=== PATIENT | female | born 1965 ===

== ENCOUNTER 2016-09-25 16:46 | Emergency (ER) | payer BC ==
[2016-09-25 16:56] VITALS: RESP 16
[2016-09-25] MEDS ORDERED: Sodium Chloride 0.9% 1,000 ML IV STA (17:25)
--- NOTE | 2016-09-25 17:37 | ED PDOC ---
HPI: Headache Chief Complaint (Provider): headache History Per: Patient History/Exam Limitations: no limitations Onset/Duration Of Symptoms: Hrs (36) Current Symptoms Are (Timing): Still Present Severity: Severe Pain Scale Rating Of: 8 Quality: "Pain" Preceeding Symptoms: None Associated Symptoms: denies: Photophobia, Blurred Vision, Nausea, Vomiting, Extremity Weakness Additional Complaint(s): 50 yo F w PMHx of DM2 presents to ER w cough, congestion for previous 2 weeks and new onset headache. Pain began yesterday morning, is 8/10, localized to base of her skull, does not radiate, and does not worsen w lights or sound. She took excedrin this morning and advil 400mg at noon, both with little change in pain. Complains of 2 week h/o cough, congestion that she believes to have been seasonal allergies. Rhinorrhea resolved about 1 week ago but she still c/o 1 episode of dry cough at night. She denies fevers/chills, nausea, vomiting, diarrhea, constipation, diaphoresis, chest pain, SOB, dyspnea, cough. She is compliant with her DM medications and her home sugars are 150-190. No known sick contacts, except for her 28 year old son who also has seasonal allergies. Otherwise, she denies abdominal pain, hematuria, dysuria, vaginal discharge, hematochezia, melena, or other myalgias. <Devin Ford - Last Filed: 09/25/16 18:39> Additional Complaint(s): No neck pain. No vision changes. No fever. Has cough still with nasal congestion. No numbness, tingles, weakness. <Lewis Estevez M - Last Filed: 09/25/16 20:26> Time Seen by Provider: 09/25/16 17:16 Chief Complaint (Nursing): Headache Supervising Attending Note - Supervising Attending Note The Documented history was done by the: Physician Master Police Detective The documented physical exam was done by the: Physician Master Police Detective The documented procedures were done by the: Physician Master Police Detective - Attestation: I have personally seen and examined this patient.: Yes I have fully participated in the care of the patient.: Yes I have reviewed all pertinent clinical information: Yes <Lewis Estevez - Last Filed: 09/25/16 20:26> Past Medical History Reviewed: Historical Data, Nursing Documentation, Vital Signs Vital Signs: Last Vital Signs Temp 98.2 F 09/25/16 16:52 Pulse 89 09/25/16 16:52 Resp 16 09/25/16 16:52 BP 119/76 09/25/16 16:52 Pulse Ox 100 09/25/16 16:52 - Medical History PMH: Diabetes, Hypercholesterolemia Denies: Chronic Kidney Disease - Surgical History Surgical History: Appendectomy, Tonsillectomy, - Family History Family History: States: Unknown Family Hx <Devin Ford T - Last Filed: 09/25/16 18:39> Vital Signs: Last Vital Signs Temp 98.2 F 09/25/16 16:52 Pulse 89 09/25/16 16:52 Resp 16 09/25/16 16:52 BP 119/76 09/25/16 16:52 Pulse Ox 100 09/25/16 18:39 <Lewis Estevez - Last Filed: 09/25/16 20:26> - Home Medications Home Medications: Ambulatory Orders Medication Instructions Recorded Atorvastatin [Lipitor] 10 mg PO DAILY 07/10/14 Dapagliflozin Propanediol [Farxiga] 10 mg PO DAILY 07/10/14 Dulaglutide [Trulicity] 1.5 mg SC Q7D 07/10/14 MetFORMIN [glucoPHAGE] 1,000 mg PO DAILY 07/10/14 Glipizide [Glucotrol] 5 mg PO DAILY 01/29/15 Ibuprofen [Motrin] 600 mg PO Q6H PRN #15 tab 02/07/15 Tramadol Hydrochloride [Tramadol 50 mg PO Q6H PRN #12 tab 02/07/15 HCl] - Allergies Allergies/Adverse Reactions: Allergies Allergy/AdvReac Type Severity Reaction Status Date / Time No Known Allergies Allergy Verified 02/07/15 17:48 Review of Systems ROS Statement: Except As Marked, All Systems Reviewed And Found Negative (see HPI) <Devin Ford T - Last Filed: 09/25/16 18:39> Physical Exam - Reviewed Nursing Documentation Reviewed: Yes Vital Signs Reviewed: Yes - Physical Exam Appears: Positive for: Well, Non-toxic, No Acute Distress Head Exam: Positive for: ATRAUMATIC, NORMOCEPHALIC Skin: Positive for: Normal Color, Warm, Dry Eye Exam: Positive for: Normal appearance, EOMI, PERRL ENT: Positive for: Normal ENT Inspection. Negative for: Sinus Pain/Drainage, Nasal Congestion, Pharyngeal Erythema Neck: Positive for: Pain On Movement Of Neck (pain at skull base w full neck extension; otherwise no pain w ROM) Cardiovascular/Chest: Positive for: Regular Rate, Rhythm. Negative for: Edema Respiratory: Positive for: Normal Breath Sounds. Negative for: Wheezing, Respiratory Distress Gastrointestinal/Abdominal: Positive for: Normal Exam, Soft. 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 Negative for: Motor/Sensory Deficits, Aphasia, Facial Droop <Lewis Estevez M - Last Filed: 09/25/16 20:26> - ECG O2 Sat by Pulse Oximetry: 100 - Progress ED Course And Treament: 50 yo F w PMHx of DM2 presents to ER w cough, congestion for previous 2 weeks and new onset headache -CBC -CMP -Udip -Upreg -CT Head -NS 1L x1 -Toradol 30mg IVP x1 -Reglan 10mg IVP x1 Update 1820: -CT Head: No acute intracranial abnormalities. <Devin Ford - Last Filed: 09/25/16 18:39> - Laboratory Results Result Diagrams: 09/25/16 18:20 09/25/16 18:20 Interpretation Of Abn Labs: no acute - CT Scan/US ct Other Rad Studies (CT/US): Read By Radiologist Other Rad Interpretation: no acute - Progress ED Course And Treament: 2000: Stable. AAOx3. Pain free. Tolerated PO. Ambulated with no issues. FU with pcp. <Lewis Estevez M - Last Filed: 09/25/16 20:26> Disposition - Disposition Disposition Time: 18:30 <Devin Ford - Last Filed: 09/25/16 18:39> - Patient ED Disposition Is Patient to be Admitted: Yes Counseled Patient/Family Regarding: Studies Performed, Diagnosis, Need For Followup - Disposition Disposition: Routine/Home <Lewis Estevez M - Last Filed: 09/25/16 20:26> - Clinical Impression Clinical Impression: Acute headache, URI (upper respiratory infection) - Disposition Referrals: [facility] [Outside] Condition: STABLE Instructions: Acute Headache (ED), Upper Respiratory Infection (ED)
--- NOTE | 2016-09-25 18:18 | CT ---
PROCEDURE: CT HEAD WITHOUT CONTRAST. HISTORY: headache COMPARISON: 04/24/2012 TECHNIQUE: Axial computed tomography images were obtained through the head/brain without intravenous contrast. Radiation dose: Total exam DLP = 859.25 mGy-cm. This CT exam was performed using one or more of the following dose reduction techniques: Automated exposure control, adjustment of the mA and/or kV according to patient size, and/or use of iterative reconstruction technique. FINDINGS: HEMORRHAGE: No intracranial hemorrhage. BRAIN: No mass effect or edema. No atrophy or chronic microvascular ischemic changes. VENTRICLES: Unremarkable. No hydrocephalus. CALVARIUM: Unremarkable. PARANASAL SINUSES: Unremarkable as visualized. No significant inflammatory changes. MASTOID AIR CELLS: Unremarkable as visualized. No inflammatory changes. OTHER FINDINGS: None. IMPRESSION: No acute intracranial abnormalities. No significant findings to account for the clinical presentation. Phase No significant interval change compared to the prior examination(s).
[2016-09-25 18:42] LABS: ALB/GLOB RATIO 1.4 (1.0-2.1); ALBUMIN 4.3 g/dL (3.5-5.0); ALT/SGPT 51 U/L (9-52); AST/SGOT 28 U/L (14-36); BLOOD UREA NITROGEN 15 mg/dl (7-17); CALCIUM 9.8 mg/dL (8.4-10.2); GFR AFRICAN-AMERICAN > 60; GFR NON-AFRICAN AMERICAN > 60
[2016-09-25 18:48] LABS: BASO % 0.7 % (0.0-2.0); EOS # 0.1 K/uL (0.0-0.7); EOS % 1.8 % (0.0-4.0); HEMOGLOBIN 12.7 g/dL (12.0-16.0); LYMPH # 3.1 K/uL (1.0-4.3); LYMPH % 42.7 % (20.0-40.0); MEAN CELL VOLUME 90.8 fl (81.0-99.0); MEAN CORPUSCULAR HEMOGLOBIN 31.4 pg (27.0-31.0); MEAN CORPUSCULAR HGB CONC 34.5 g/dL (33.0-37.0); MEAN PLATELET VOLUME 7.1 fl (7.2-11.7); MONO # 0.6 K/uL (0.0-0.8); NEUT # 3.4 K/uL (1.8-7.0); NEUT % 46.8 % (50.0-75.0); NRBC % 0.1 % (0.0-0.0); RBC 4.06 Mil/uL (3.80-5.20); RED CELL DISTRIBUTION WIDTH 12.4 % (11.5-14.5); WHITE BLOOD COUNT 7.2 K/uL (4.8-10.8)
[2016-09-25 20:21] VITALS: BP 117/63; PULSE 51; TEMP 98; O2SAT 98
== END 2016-09-25 20:31 | disposition home or self-care (01) ==
LOC: H.ER 16:46
DX: R51 Headache (principal); J06.9 Acute upper respiratory infection, unspecified; E11.9 Type 2 diabetes mellitus without complications; E78.00 Pure hypercholesterolemia, unspecified; Z79.84 Long term (current) use of oral hypoglycemic drugs
CPT/HCPCS: 70450; 80053; 81025; 85025; 96361; 96374; 96375; 99285; J1885; J2765; J7040

== ENCOUNTER 2017-01-16 09:23 | Day surgery (SDC) | payer BC ==
[2017-01-14 14:43] VITALS: BMI 30.1
[2017-01-16] MEDS ORDERED: ceFAZolin 2 GM in Sodium Chloride 0.9% 100 ML IVPB ONE (11:11)
[2017-01-16] MEDS ORDERED: Lidocaine 2% w Epi 1:100,000 Inj IJ ONE (11:12)
[2017-01-16] MEDS ORDERED: Lidocaine 1% Inj (20ml) ONE (11:12)
[2017-01-16] MEDS ORDERED: Midazolam 2 MG/2 ML VIAL ONE (11:15)
[2017-01-16] MEDS ORDERED: Ropivacaine 0.5% 30ML IV ONE (11:16)
[2017-01-16] MEDS ORDERED: Propofol 10 mg/ml Inj (20 ML) ONE (11:17)
--- NOTE | 2017-01-16 11:17 | CP.SDSHP ---
Same Day Surgery H & P - History Proposed Procedure: Right ankle arthroscopy with extensive debridement, lateral ankle stabilization with implant, platelet rich plasma injection Pre-Op Diagnosis: right ankle chronic painful synovitis and lateral ankle stabilization - Previous Medical/Surgical History Pain: 8.Very Severe - Allergies Allergies: Allergies No Known Allergies Allergy (Verified 01/14/17 14:43) - Physical Exam Vital Signs: Vital Signs 01/16/17 01/16/17 09:46 09:50 Temperature 98.8 F Pulse Rate 85 85 Respiratory 18 Rate Blood Pressure 122/78 O2 Sat by Pulse 85 L Oximetry Mental Status: Alert & Oriented x3 - Impression Impression: Pt was seen and examined in SDS. Pt NPO status was confirmed. All Pre-op testing and clearance was in the chart. Pt has exhausted all conservative treatment at this time and is opting for surgical intervention. Pt was explained procedure and post-operative course. All pt's questions were answered to satisfaction. No guarantees were made. Pt understands all risks, benefits and complications of procedure. Pt will follow-up with Dr. Becker - Date & Time Date: 01/16/17 Time: 10:40 Short Stay Discharge - Short Stay Discharge Admitting Diagnosis/Reason for Visit: M65.871/S93.491S/S93.411S Referrals: Quinton Jeronimo MD [Primary Care Provider] - Instructions: RICE Therapy (GEN) Additional Instructions (Diet, Activity): - Patient evaluated bedside in recovery s/p surgical procedure. - After surgical procedure patient in NAD - (+) Void, (+) Appetite - Capillary refill time <3s and NVSI intact. - Patient denies complaints at this time - Post operative instructions and plan of care explained to patient at length. - Pt. acknowledges understanding. - Patient stable for DC per podiatric surgery Progress Note/Discharge Note with Instructions: --Patient in good/stable condition for discharge home. Pt to resume medications per medical reconciliation. Resume regular diet. Please keep dressing clean, dry, & intact to surgical site, use plastic bag over bandage for showering, wear CAM at all times when ambulating, call clinic if you see signs of infection (redness, swelling, malodor), please make an appointment to see Dr. Vee office/clinic within 1 week for post-op check.
--- NOTE | 2017-01-16 11:17 | CP.PCM.PN ---
Subjective - Date & Time of Evaluation Date of Evaluation: 01/16/17 Time of Evaluation: 10:40 - Subjective Subjective: 51 y.o female was evaluated in [facility] for right ankle pain and lateral ankle instability. She reports that the pain has gotten worse over the last 6 months. She states when she walks, she feels unstable. Today she rates her pain 7/10 and describes the pain as a stabbing pain and localized to the right ankle. Patient states she did not drink or eat anything since last night. She denies n/ v/sob/cp/chills or f. PMH: DM PSH: Appendectomy, Tonsillectomy, SH: smoker, denies drinking or illicit drug use MEDS: see medication list ALL: NKDA FH: noncontributory Objective - Vital Signs/Intake and Output Vital Signs (last 24 hours): Temp Pulse Resp BP Pulse Ox 98.8 F 85 18 122/78 85 L 01/16/17 09:50 01/16/17 09:50 01/16/17 09:50 01/16/17 09:50 01/16/17 09:50 - Medications Medications: Current Medications Cefazolin Sodium 2 gm/ Sodium (Chloride) 100 mls @ 100 mls/hr IVPB ONCE ONE PRN Reason: Protocol Stop: 01/16/17 12:10 - Constitutional Appears: Well, Non-toxic, No Acute Distress - Extremities Exam Additional comments: Vasc: DP and PT 2/4 bilaterally, CFT <3 seconds x10 digits, temperature gradient WNL, edema noted to the right ankle Ortho: severe pain with palpation to the lateral ankle, severe pain with palpation to the right CFT and ATFL. MM is 5/5 in dorsiflexion, plantarflexion , inversion and eversion Neuro: protective and gross sensation intact Derm: no open lesions, skin is well hydrated, nails 1-5 b/l WNL for thickness and length - Neurological Exam Neurological Exam: Alert, Awake, Oriented x3 - Psychiatric Exam Psychiatric exam: Normal Affect, Normal Mood Assessment and Plan - Assessment and Plan (Free Text) Assessment: 51 y.o female was evaluated in [facility] for right ankle pain and lateral ankle instability. Plan: Pt was seen and examined in [facility] Pt NPO status was confirmed All Pre-op testing and clearance was in the chart Pt has exhausted all conservative treatment at this time and is opting for surgical intervention Pt was explained procedure and post-operative course All pt's questions were answered to satisfaction No guarantees were made Pt understands all risks, benefits and complications of procedure Pt will follow-up with Dr. Becker
[2017-01-16] MEDS ORDERED: Lactated Ringer's 1,000 ML IV ONE ×2 (11:25→12:30)
[2017-01-16] MEDS ORDERED: Sevoflurane - Inhalation Anesthetic Liq (250 ml) ONE (12:30)
[2017-01-16] MEDS ORDERED: Bupivacaine 0.5% Inj(30mL) ONE (13:26)
[2017-01-16] MEDS ORDERED: Bupivacaine 0.5% Inj(30mL) IJ ONE (13:29)
[2017-01-16] MEDS ORDERED: Lactated Ringer's 1,000 ML IV SCH (13:45)
--- NOTE | 2017-01-16 13:54 | PCM.SURG1 ---
Surgeon's Initial Post Op Note - Surgeon's Notes Surgeon: Dr. Becker Embossing Machine Operator Helper: Klaus, PGY-3 Type of Anesthesia: General LMA, Block Regional (popliteal block) Anesthesia Administered By: Dr. Romero Pre-Operative Diagnosis: Right ankle- chronic and painful synovitis; lateral ankle instability Operative Findings: See dictation. Hemostasis: PTT at 350mmHg. Materials: Arthrex InternalBrace, Arthrex mini 2.4 suture lyndsay; 4-0 vicryl, 4-0 monocryl; 4- 0 nylon; steri-strips, DSD, ALBA bandage. Injectables: 20 cc 0.5% Marcaine plain post-op. Condition: Stable. Complications: None Post-Operative Diagnosis: Same as above Operation Performed: Right ankle- arthroscopy with extensive debridement of synovial tissue; lateral ankle stabilization; PRP injection Specimen/Specimens Removed: None Estimated Blood Loss: EBL {In ML}: 10 Blood Products Given: N/A Drains Used: No Drains Post-Op Condition: Good Date of Surgery/Procedure: 01/16/17 Time of Surgery/Procedure: 11:00
[2017-01-16] MEDS ORDERED: Oxycodone/Acetaminophen 5/325 mg Tab PO PRN ×2 (14:01)
[2017-01-16 14:48] VITALS: RESP 18; O2SAT 97
--- NOTE | 2017-01-16 15:00 | PCM.ANESB2 ---
Popliteal Nerve Block - Popliteal Nerve Block Date of Procedure: 01/16/17 Anesthesiologist: Ludwig Romero MD Procedure Performed: Popliteal Nerve Block Right - Procedure Popliteal Nerve Block: This procedure was explained to the patient that it is for post-operative pain management. Consent was obtained after a thorough discussion with the patient regarding the benefits and possible complications of local anesthetic block of the sciatic nerve at the popliteal level. The patient was brought to the operating room and standard monitors are applied. Time-out was held with the circulating nurse to confirm the correct surgery and the appropriate block. After induction of general anesthesia, patient's operative leg was gently raised and supported and the groove in between the biceps femoris and vastus lateralis muscles was carefully palpated. The skin approximately 8cm above the popliteal crease was then marked. The ultrasound transducer was then applied to the posterior thigh approximately 8cm above the popliteal crease in the transverse plane and the sciatic nerve before its division was visualized lateral to the popliteal artery and in between the bicep femoris and semimembranosus/semitendinosus muscles. After identification, the lateral portion of the thigh was prepped with chloroprep solution three times and Lidocaine 1% was injected subcutaneously for topical anesthesia. At this point, a # 21 gauge Stimuplex insulated 4 inch needle was inserted into pre-marked area and advanced in a perpendicular direction. The needle was inserted above the ultrasound transducer in-plane towards the sciatic nerve in a [id number] direction. Needle advancement was performed carefully under direct ultrasound visualization. Nerve stimulator was used and dorsiflexion of the _Right____ foot was elicited at a current of _0.2____ MA. After repeated negative aspiration, _20____cc of _0.5____ % _Ropivacaine was injected . Under ultrasound guidance the local anesthetics were observed surrounding sciatic nerve . The needle was removed intact and sterile dressing was applied. The patient tolerated the popliteal nerve block well with stable vital signs and was subsequently prepared for the surgery.
[2017-01-16] MEDS ORDERED: Oxycodone/Acetaminophen 5/325 mg Tab PO ONE (15:15)
[2017-01-16 16:09] VITALS: BP 136/72; PULSE 70; TEMP 97.4
--- NOTE | 2017-01-21 06:32 | OP ---
PROCEDURE DATE: 01/16/2017 SURGEON: Abilio Becker DPM BACTERIOLOGY RESEARCH ASSISTANT: Fidencio Enrique DPM, PGY-3 TOLL OPERATOR: Dr. Ludwig Romero MD ANESTHESIA: General LMA with popliteal block. PREOPERATIVE DIAGNOSES: 1. Right ankle chronic and painful synovitis. 2. Right ankle lateral ankle instability. POSTOPERATIVE DIAGNOSES: 1. Right ankle chronic and painful synovitis. 2. Right ankle lateral ankle instability. PROCEDURE: 1. Right ankle arthroscopy with extensive debridement of synovial tissue. 2. Right ankle lateral ankle stabilization using Arthrex Mini SutureTak and InternalBrace. 3. Right ankle platelet-rich plasma injection. INDICATIONS: The patient is a 51-year-old female with the above diagnosis. The patient has undergone second conservative treatment at this time and now requests surgical intervention. The patient signed the consent after careful explanation of risks, benefits, complications, and alternatives for surgical procedure. No guarantees were given nor implied. The patient was given 2 g of IV Ancef prior to the procedure. The patient's n.p.o. status was confirmed prior to taking the patient to the OR. DESCRIPTION OF PROCEDURE: The patient was brought to the operating room and placed on the operating room table in a supine position. Time-out was performed for identification of the correct patient and the correct procedure. Once general anesthesia was achieved, a well-padded pneumatic thigh tourniquet was applied to the patient's right thigh. A bump was placed under the ipsilateral hip in order to internally rotate the right leg. The right lower extremity was then prepped and draped in the usual sterile manner. Esmarch was utilized to exsanguinate the patient's right lower extremity. Pneumatic thigh tourniquet was then inflated to 350 mmHg and the procedure began. PROCEDURE #1: Right ankle arthroscopy with extensive debridement of synovial tissue. Attention was then directed to the dorsal aspect of the patient's right ankle. Using a surgical marking pen, anatomic landmarks were marked such as the tibialis anterior tendon, and the medial and lateral gutters were identified. Next, using an #11 blade, a medial portal was created. Using a hemostat down to the level of the ankle joint, the ankle joint was then entered. Next, the 2.7 scope was inserted into the medial portal. There was an abundant hypertrophic synovium as well as fibrous bands within the lateral gutter of the ankle joint. Next, a lateral portal was created using a #11 blade, and a curved hemostat was used to bluntly dissect down to the level of the joint. A trocar was placed into the lateral port and it was triangulated along with a 2.7 scope. Next, a 3.5 arthroscopic shaver was inserted into the lateral ankle portal, and debridement of the hypertrophic synovium was performed. The ankle joint was inspected for any osteochondral defect, and none were noted. The arthroscope and shaver were removed from the respective portals at this time and were inserted through the arthroscopic portal. Debridement of the hypertrophic synovium was now performed within the medial gutter. Next, the ankle joint was then copiously irrigated, and the 2.7 scope and the 3.5 arthroscopic shaver were removed from each portal. The portal sites were then flushed with copious amounts of sterile normal saline. The skin at both the medial and lateral portals was then re-approximated and coapted with 4-0 nylon. PROCEDURE #2: Right ankle and lateral ankle stabilization using Arthrex Mini SutureTak and InternalBrace. Attention was then directed to the internal lateral aspect of the right ankle. Using a #15 blade, an approximately 7 cm curvilinear incision was created along the lateral gutter of the ankle joint. The incision was carried through the subcutaneous tissue with care being taken to identify and retract all vital neurovascular structures. All bleeders were cauterized and ligated as necessary. With the use of a fresh #15 blade, the capsular structures were incised in a similar fashion through the original incision thorough the skin. Dissection was carried down to the level of bone. At this point, it was noted that the anterior talofibular ligament was torn. The drill from the InternalBrace system was utilized to create a welder railcar mechanic drill hole for the Arthrex InternalBrace within the neck of the talus and the anterior aspect of the distal fibula. Once anchored into the talus, the InternalBrace system was felt deep through the capsular tissue and extensor retinaculum, and it was then retracted from the surgical site. Next, a 1.8-mm drill was used to create a drill hole on the distal aspect of the fibula, approximately 1.5 cm proximal to the distal fib for insertion of the Arthrex Mini SutureTak once the implant was anchored into the distal fibula. The sutures were fed through the distal aspect of the ankle capsule and the extensor retinaculum in a routine fashion. Once this was completed, the respective suture anchors were then passed through the proximal aspect of the capsule and the anterior talofibular ligament. These respective sutures were then tied to one another while maintaining the foot in a dorsiflexed and everted position. This effectively allowed primary repair of the anterior talofibular ligament. Next, the distal end of the InternalBrace system was fed through a Single Lock System. The ankle joint was placed into a neutral and partly plantarflexed position. Approximately 1 cm of laxity was then given to the InternalBrace, and the proximal portion of the InternalBrace was then anchored into the tibial level from the previously drilled welder railcar mechanic hole. This effectively allowed stabilization of the lateral aspect of the ankle joint. The ankle joint was then taken through its range of motion, both the plantar flexion and dorsiflexion, also eversion and inversion. Significant reduction in the lateral ankle instability was noted. The surgical site was now irrigated with copious amounts of sterile normal saline. The deep tissues were then re-approximated and coapted using 4-0 Vicryl. PROCEDURE #3: Right ankle platelet-rich plasma injection. Approximately 60 mL of the patient's own blood was harvested from the Hep-Lock. This 60 mL of autologous blood was placed in the centrifuge system. An anticoagulant was then added, and the blood was centrifuged down to give approximately 5 mL of platelet-rich plasma. This platelet-rich plasma solution was then placed in a syringe. The platelet-rich plasma was then injected within the lateral gutter of the ankle joint and within the site of the primary ATFL repair to facilitate healing. At this time, the subcutaneous tissues were then re-approximated and coapted with 4-0 Vicryl. The skin was then re-approximated and coapted using 5-0 Monocryl in a running subcuticular fashion. Steri-Strips were then applied over the incision site. Next, this ankle joint was blocked with 10 mL of 0.5% Marcaine plain. The surgical site was now dressed with moist 4 x 4 gauze, dry 4 x 4 gauze, Kerlix, and an Jose bandage. The attending, Dr. Becker, was present throughout the entire case. POSTOPERATIVE CONDITION: The patient tolerated the anesthesia and procedures well with no complications. The patient was escorted to the recovery room with vital signs stable and neurovascular status intact to the right lower extremity. She was instructed to weightbear as tolerated with a Cam walker. The patient is to follow up with Dr. Becker at his office on an outpatient basis. Fidencio Enrique DPM
== END 2017-01-16 16:30 | disposition home or self-care (01) ==
LOC: H.OPSURG 09:23
PROVIDERS: ATTEND Podiatrist
DX: M65.871 Other synovitis and tenosynovitis, right ankle and foot (principal); E11.9 Type 2 diabetes mellitus without complications; E78.5 Hyperlipidemia, unspecified; M25.371 Other instability, right ankle
CPT/HCPCS: 0232T; 29898; 29899; 82948; 97116; 97161; C1769; G0460; G8978; G8979; G8980; J0690; J2001; J2250; J2704; J3010; J7030; J7120

== ENCOUNTER 2017-03-17 21:39 | Emergency (ER) | payer BC ==
[2017-03-17 21:39] VITALS: BMI 30.1
[2017-03-17 21:54] VITALS: BP 148/82; PULSE 76; RESP 16; TEMP 97.9; O2SAT 98
== END 2017-03-18 00:20 | disposition left against medical advice (07) ==
LOC: H.ER 21:39
DX: Z02.89 Encounter for other administrative examinations (principal)

== ENCOUNTER 2017-03-27 11:37 | Inpatient (IN) | payer BC ==
[2017-03-27 11:52] VITALS: BMI 33.3
--- NOTE | 2017-03-27 12:34 | ED PDOC ---
HPI: General Adult Time Seen by Provider: 03/27/17 12:28 Chief Complaint (Nursing): Breast Problem Chief Complaint (Provider): breast infection History Per: Patient (51 y/o female s/p biopsy of left breast mass 03/19/2017 was noted to have infection consistent of group D enterococci susceptible to amp /vanc. Also noted in cx was coagulase neg staph strain susceptible to cephelexin /pcn/clinda and coag neg staph strain 2 susceptible to bactrim/keflex. Patient has been ampicillin x 2 days without improvement of symptoms. Denies any fevers /chills. Sent by pmd Dr. Terry for admission and iv antibiotics.) Past Medical History Reviewed: Historical Data, Nursing Documentation, Vital Signs Vital Signs: Last Vital Signs Temp 97.7 F 03/29/17 08:10 Pulse 78 03/29/17 08:10 Resp 20 03/29/17 08:10 BP 118/77 03/29/17 08:10 Pulse Ox 96 03/29/17 08:10 - Medical History PMH: Diabetes, Hypercholesterolemia Denies: Chronic Kidney Disease - Surgical History Surgical History: Appendectomy, Tonsillectomy, - Family History Family History: States: Unknown Family Hx - Home Medications Home Medications: Ambulatory Orders Medication Instructions Recorded Acetaminophen/Oxycodone Hydr 1 tab PO DAILY 01/16/17 [Percocet 10/325 mg Tab] SITagliptin [Januvia] 100 mg PO DAILY 01/16/17 Dulaglutide [Trulicity] 0.75 mg SC SUN 03/27/17 Glimepiride [Amaryl] 4 mg PO BID 03/27/17 Metformin HCl [Metformin HCl ER] 1,000 mg PO BID 03/27/17 - Allergies Allergies/Adverse Reactions: Allergies Allergy/AdvReac Type Severity Reaction Status Date / Time No Known Allergies Allergy Verified 03/17/17 21:52 Review of Systems ROS Statement: Except As Marked, All Systems Reviewed And Found Negative Physical Exam - Reviewed Nursing Documentation Reviewed: Yes Vital Signs Reviewed: Yes - Physical Exam Appears: Positive for: Well, Non-toxic, No Acute Distress Head Exam: Positive for: ATRAUMATIC, NORMAL INSPECTION, NORMOCEPHALIC Skin: Positive for: Warm. Negative for: Normal Color (2.5 cm region of swelling and erythema noted left breast noted medial aspect.) Eye Exam: Positive for: EOMI, Normal appearance, PERRL ENT: Positive for: Normal ENT Inspection Neck: Positive for: Normal, Painless ROM Cardiovascular/Chest: Positive for: Regular Rate, Rhythm Respiratory: Positive for: CNT, Normal Breath Sounds Gastrointestinal/Abdominal: Positive for: Normal Exam, Bowel Sounds, Soft Back: Positive for: Normal Inspection Extremity: Positive for: Normal ROM Neurologic/Psych: Positive for: Alert, Oriented - Laboratory Results Result Diagrams: 03/27/17 13:11 03/27/17 13:11 - ECG O2 Sat by Pulse Oximetry: 100 - Progress ED Course And Treament: d/w Dr. Herrera. patient does not meet SRS criteria. Lactate elevated. wbc wnl / pulse/resp rate/BP wnl. NS 1 liter. repeat Lactate improved to 2.4. Vancomycin 1 gm iv x 1 dose d/w Dr. Crabtree for admission. Disposition - Clinical Impression Clinical Impression: Cellulitis of breast, Abscess of breast - Patient ED Disposition Is Patient to be Admitted: Yes - Disposition Disposition Time: 13:00 Condition: STABLE
[2017-03-27 13:02] LABS: VENOUS BLOOD GAS BASE EXCESS 0.5 mmol/L (0.0-2.0); VENOUS BLOOD GAS PCO2 44 mmHg (40-60); VENOUS BLOOD GAS PO2 35 mm/Hg (30-55); VENOUS BLOOD PH 7.38 (7.32-7.43)
[2017-03-27] MEDS ORDERED: Sodium Chloride 0.9% 2,000 ML IV STA (13:10)
[2017-03-27 13:21] LABS: BASO % 0.5 % (0.0-2.0); EOS # 0.1 K/uL (0.0-0.7); HEMOGLOBIN 13.5 g/dL (12.0-16.0); LYMPH # 2.4 K/uL (1.0-4.3); MEAN CELL VOLUME 91.2 fl (81.0-99.0); MEAN CORPUSCULAR HEMOGLOBIN 31.3 pg (27.0-31.0); MEAN CORPUSCULAR HGB CONC 34.4 g/dL (33.0-37.0); MEAN PLATELET VOLUME 7.3 fl (7.2-11.7); MONO # 0.4 K/uL (0.0-0.8); NEUT # 4.4 K/uL (1.8-7.0); NEUT % 59.5 % (50.0-75.0); NRBC % 0.1 % (0.0-0.0); RBC 4.31 Mil/uL (3.80-5.20); RED CELL DISTRIBUTION WIDTH 12.4 % (11.5-14.5); WHITE BLOOD COUNT 7.4 K/uL (4.8-10.8)
[2017-03-27 13:43] LABS: ALB/GLOB RATIO 1.3 (1.0-2.1); ALBUMIN 4.1 g/dL (3.5-5.0); ALT/SGPT 57 U/L (9-52); AST/SGOT 41 U/L (14-36); BLOOD UREA NITROGEN 14 mg/dl (7-17); CALCIUM 9.7 mg/dL (8.4-10.2); GFR AFRICAN-AMERICAN > 60; GFR NON-AFRICAN AMERICAN > 60
--- NOTE | 2017-03-27 14:43 | RAD ---
PROCEDURE: CHEST RADIOGRAPH, 1 VIEW HISTORY: routine COMPARISON: Comparison chest 12/27/2016. . FINDINGS: LUNGS: Poor inspiration with low lung volumes, crowded bronchovascular markings and mild bibasilar atelectasis. PLEURA: No pneumothorax or pleural fluid seen. CARDIOVASCULAR: Heart size upper limits of normal. OSSEOUS STRUCTURES: No significant abnormalities. VISUALIZED UPPER ABDOMEN: Normal. OTHER FINDINGS: None. IMPRESSION: Poor inspiration low lung volumes crowded bronchovascular markings and mild bibasilar atelectasis. TheNo active disease.
[2017-03-27 15:46] LABS: VENOUS BLOOD GAS BASE EXCESS -1.7 mmol/L (0.0-2.0); VENOUS BLOOD GAS PCO2 45 mmHg (40-60); VENOUS BLOOD GAS PO2 28 mm/Hg (30-55); VENOUS BLOOD PH 7.34 (7.32-7.43)
[2017-03-27] MEDS ORDERED: Oxycodone/Acetaminophen 5/325 mg Tab PO PRN (18:19)
[2017-03-27] MEDS: Sodium Chloride 0.9% 1,000 ML IV SCH (22:07)
[2017-03-27] MEDS: Insulin Regular 100 units/ml SC SCH (22:20)
[2017-03-28] MEDS: Sodium Chloride 0.9% 1,000 ML IV SCH (07:20)
[2017-03-28] MEDS: Insulin Regular 100 units/ml SC SCH ×4 (07:30→21:39)
[2017-03-28] MEDS: GlipiZIDE 10 mg SR Tab PO SCH ×2 (09:47→21:40)
--- NOTE | 2017-03-28 12:48 | CARD ---
APPROVED REPORT EKG Measurement Heart [id number] <Conclusion> Normal sinus rhythm Normal ECG
--- NOTE | 2017-03-28 23:17 | CP.PCM.HP ---
History of Present Illness - History of Present Illness History of Present Illness: CC: Left Breat Swelling and Pain, and Multiple Organism Identified, and FAiled outpatient Treatment History of Present Illness: A 51 y/o female with H/O DMII s/p biopsy of left breast mass 03/19/2017 was noted to have infection consistent of group D Enterococci susceptible to amp/ vanc. Also noted in cx was Coagulase neg staph strain susceptible to cephelexin/ pcn/clinda and coag neg staph strain 2 susceptible to Bactrim/Keflex. Patient has been taking ampicillin x 2 days without improvement of symptoms. Denies any fevers/chills. Sent by pmd Dr. Jeronimo for admission and iv antibiotics. Denies fever or chills. Biopsy was negative for Malignancy.) Present on Admission - Present on Admission Any Indicators Present on Admission: No History of DVT/PE: No History of Uncontrolled Diabetes: Yes Urinary Catheter: No Decubitus Ulcer Present: No Review of Systems - Review of Systems All systems: reviewed and no additional remarkable complaints except - Breasts Breasts: As Per HPI, Pain, Skin Changes, Swelling Past Patient History - Past Medical History & Family History Past Medical History?: Yes Past Family History: Reviewed and not pertinent - Past Social History Smoking Status: Never Smoked Alcohol: None Drugs: Denies - CARDIAC Hx Hypercholesterolemia: Yes - PULMONARY Hx Respiratory Disorders: No - NEUROLOGICAL Hx Neurological Disorder: No - HEENT Hx HEENT Problems: No - RENAL Hx Chronic Kidney Disease: No - ENDOCRINE/METABOLIC Hx Endocrine Disorders: Yes Hx Diabetes Mellitus Type 2: Yes - HEMATOLOGICAL/ONCOLOGICAL Hx Blood Disorders: No - INTEGUMENTARY Hx Dermatological Problems: No - MUSCULOSKELETAL/RHEUMATOLOGICAL Hx Musculoskeletal Disorders: No Hx Falls: No - GASTROINTESTINAL Hx Gastrointestinal Disorders: No - GENITOURINARY/GYNECOLOGICAL Hx Genitourinary Disorders: No - PSYCHIATRIC Hx Emotional Abuse: No Hx Physical Abuse: No Hx Substance Use: No - SURGICAL HISTORY Hx Appendectomy: Yes Hx Tonsillectomy: Yes - ANESTHESIA Hx Anesthesia: Yes Hx Anesthesia Reactions: No Hx Malignant Hyperthermia: No Meds Home Medications: Home Medication List Medication Instructions Recorded Confirmed Type Benzocaine/Menthol [Cepacol Sore 1 cortney PO Q4 PRN cortney 04/01/17 Rx Throat] Fluticasone Propionate [Flonase] 1 spr KIMBERLEE BID #1 bottle 04/01/17 Rx Linezolid [Zyvox] 600 mg PO Q12 #14 tab 04/01/17 Rx guaiFENesin/Dextromethorphan 1 tab PO BID tab 04/01/17 Rx [Mucinex-DM 600-30 mg] Allergies/Adverse Reactions: Allergies Allergy/AdvReac Type Severity Reaction Status Date / Time No Known Allergies Allergy Verified 03/17/17 21:52 Physical Exam - Constitutional Appears: Well, No Acute Distress - Head Exam Head Exam: ATRAUMATIC, NORMAL INSPECTION, NORMOCEPHALIC - Eye Exam Eye Exam: EOMI, Normal appearance, PERRL Pupil Exam: NORMAL ACCOMODATION, PERRL - ENT Exam ENT Exam: Mucous Membranes Moist, Normal Exam - Neck Exam Neck exam: Positive for: Full Rom, Normal Inspection - Respiratory Exam Respiratory Exam: Clear to Auscultation Bilateral, NORMAL BREATHING PATTERN Additional comments: Left Breast erythema and mass Perinipple area with extending deep with Tenderness and Erythema. - Cardiovascular Exam Cardiovascular Exam: REGULAR RHYTHM, +S1, +S2 - GI/Abdominal Exam GI & Abdominal Exam: Normal Bowel Sounds, Soft. absent: Tenderness - Rectal Exam Rectal Exam: NORMAL INSPECTION - Extremities Exam Extremities exam: Positive for: normal capillary refill, normal inspection - Back Exam Back exam: NORMAL INSPECTION. absent: CVA tenderness (L), CVA tenderness (R) - Neurological Exam Neurological exam: Alert, CN II-XII Intact, Normal Gait, Oriented x3, Reflexes Normal - Psychiatric Exam Psychiatric exam: Normal Affect, Normal Mood - Skin Skin Exam: Dry, Intact, Normal Color, Warm Results - Vital Signs Recent Vital Signs: Last Vital Signs Temp 97.9 F 03/28/17 16:15 Pulse 89 03/28/17 16:15 Resp 18 03/28/17 16:15 BP 129/83 03/28/17 16:15 Pulse Ox 97 03/28/17 16:15 - Labs Result Diagrams: 04/01/17 05:45 03/31/17 05:35 Labs: Laboratory Results - last 24 hr 03/28/17 03/28/17 03/28/17 05:45 10:59 15:59 POC Glucose (mg/dL) 206 H 209 H 186 H 03/28/17 21:34 POC Glucose (mg/dL) 241 H - Imaging and Cardiology Chest x-ray Status: Report reviewed by me Assessment & Plan (1) Cellulitis of breast Assessment and Plan: R/O Abscess Vancomycin 1g IV Q12hrs IVF Monitor Improvement ID Consult [place] Consult CBC with diff Vanco /Peak Status: Acute Priority: High (2) Diabetes mellitus Status: Chronic Priority: Low
[2017-03-29] MEDS: Insulin Regular 100 units/ml SC SCH ×4 (07:30→22:01)
[2017-03-29] MEDS: GlipiZIDE 10 mg SR Tab PO SCH ×2 (09:08→16:39)
[2017-03-30] MEDS: GlipiZIDE 10 mg SR Tab PO SCH ×2 (08:27→16:14)
[2017-03-30] MEDS: Insulin Regular 100 units/ml SC SCH ×4 (08:27→22:50)
--- NOTE | 2017-03-30 13:33 | CP.PCM.PN ---
Subjective - Date & Time of Evaluation Date of Evaluation: 03/29/17 Time of Evaluation: 16:25 Objective - Vital Signs/Intake and Output Vital Signs (last 24 hours): Temp Pulse Resp BP Pulse Ox 98.3 F 78 20 109/73 96 03/30/17 08:01 03/30/17 08:01 03/30/17 08:01 03/30/17 08:01 03/30/17 08:01 - Medications Medications: Current Medications Glipizide (Glucotrol Xl) 10 mg PO BID@0800,1700 [facility] Last Admin: 03/30/17 08:27 Dose: 10 mg Heparin Sodium (Porcine) (Heparin) 5,000 units SC Q8 [facility] PRN Reason: Protocol Last Admin: 03/30/17 08:27 Dose: 5,000 units Vancomycin HCl 1 gm/ Sodium (Chloride) 250 mls @ 166.667 mls/hr IVPB Q12 [facility] PRN Reason: Protocol Last Admin: 03/30/17 08:26 Dose: 166.667 mls/hr Insulin Human Regular (Humulin R) 0 units SC ACHS [facility] PRN Reason: Protocol Last Admin: 03/30/17 11:10 Dose: 1 units Metformin HCl (Glucophage) 1,000 mg PO BID@0800,1700 [facility] Last Admin: 03/30/17 08:27 Dose: 1,000 mg Oxycodone/Acetaminophen (Percocet 5/325 Mg Tab) 2 tab PO Q6 PRN PRN Reason: Pain, severe (8-10) Stop: 03/30/17 18:20 Sitagliptin Phosphate (Januvia) 100 mg PO DAILY [facility] Last Admin: 03/30/17 08:27 Dose: 100 mg - Labs Labs: 03/27/17 13:11 03/27/17 13:11
--- NOTE | 2017-03-30 16:22 | CP.PCM.CON ---
<Lorena Peres - Last Filed: 03/30/17 16:28> History of Present Illness - History of Present Illness History of Present Illness: General surgery consult note for Dr. Mirna Peres PGY-1 Pt S & E at bedside. 51F w/PMH sig for DM, HLD admitted to hospital for IV Abx for L breast abscess that failed outpatient treatment, consulted for the same. Pt noted L breast pain with L breast abscess formation with sudden onset approximately 1 wk prior to evaluation. Pt states she came to hospital for evaluation, but left prior to being evaluated. Went to PMD day after visit to ED with breast bx on same day. Wound cx positive for Group D enterococci susceptible to ampicillin & vancomycin. PMD called to be admitted for IV ab. Pt reported to hospital on . IV abx initiated. No change in mass size, no drainage, but lesion now non tender. Denies F & C, N & C, ever having similar episodes prior, other complaints. PMH: Hx Gastritis, diverticulosis, HLD, DM. Mammogram August 2016 w/no mammographic evidence of malignancy/BIRADS 2 of bilateral breasts PSH: R ankle sx, appendectomy, tonsillectomy, All: NKDA SH: Denies tobacco use, ETOH or illicit drug use PMD: David Jeronimo Review of Systems - Review of Systems All systems: reviewed and no additional remarkable complaints except - Constitutional Constitutional: absent: Chills, Fever - EENT Eyes: absent: Change in Vision Nose/Mouth/Throat: absent: Sore Throat - Cardiovascular Cardiovascular: absent: Chest Pain - Respiratory Respiratory: absent: Cough - Gastrointestinal Gastrointestinal: absent: Abdominal Pain, Nausea, Vomiting - Genitourinary Genitourinary: absent: Change in Urinary Stream - Musculoskeletal Musculoskeletal: absent: Neck Pain - Integumentary Integumentary: New Lesions, Swelling. absent: Erythema, Pruritus, Rash Past Patient History - Past Medical History & Family History Past Medical History?: Yes - Past Social History Smoking Status: Never Smoked - CARDIAC Hx Hypercholesterolemia: Yes - PULMONARY Hx Respiratory Disorders: No - NEUROLOGICAL Hx Neurological Disorder: No - HEENT Hx HEENT Problems: No - RENAL Hx Chronic Kidney Disease: No - ENDOCRINE/METABOLIC Hx Endocrine Disorders: Yes Hx Diabetes Mellitus Type 2: Yes - HEMATOLOGICAL/ONCOLOGICAL Hx Blood Disorders: No - INTEGUMENTARY Hx Dermatological Problems: No - MUSCULOSKELETAL/RHEUMATOLOGICAL Hx Musculoskeletal Disorders: No Hx Falls: No - GASTROINTESTINAL Hx Gastrointestinal Disorders: No - GENITOURINARY/GYNECOLOGICAL Hx Genitourinary Disorders: No - PSYCHIATRIC Hx Emotional Abuse: No Hx Physical Abuse: No Hx Substance Use: No - SURGICAL HISTORY Hx Appendectomy: Yes Hx Tonsillectomy: Yes - ANESTHESIA Hx Anesthesia: Yes Hx Anesthesia Reactions: No Hx Malignant Hyperthermia: No Meds Allergies/Adverse Reactions: Allergies Allergy/AdvReac Type Severity Reaction Status Date / Time No Known Allergies Allergy Verified 03/17/17 21:52 - Medications Medications: Current Medications Glipizide (Glucotrol Xl) 10 mg PO BID@0800,1700 [facility] Last Admin: 03/30/17 16:14 Dose: 10 mg Heparin Sodium (Porcine) (Heparin) 5,000 units SC Q8 [facility] PRN Reason: Protocol Last Admin: 03/30/17 16:14 Dose: 5,000 units Vancomycin HCl 1 gm/ Sodium (Chloride) 250 mls @ 166.667 mls/hr IVPB Q12 [facility] PRN Reason: Protocol Last Admin: 03/30/17 08:26 Dose: 166.667 mls/hr Insulin Human Regular (Humulin R) 0 units SC ACHS [facility] PRN Reason: Protocol Last Admin: 03/30/17 16:14 Dose: Not Given Metformin HCl (Glucophage) 1,000 mg PO BID@0800,1700 [facility] Last Admin: 03/30/17 16:14 Dose: 1,000 mg Oxycodone/Acetaminophen (Percocet 5/325 Mg Tab) 2 tab PO Q6 PRN PRN Reason: Pain, severe (8-10) Stop: 03/30/17 18:20 Sitagliptin Phosphate (Januvia) 100 mg PO DAILY [facility] Last Admin: 03/30/17 08:27 Dose: 100 mg Physical Exam - Constitutional Appears: Non-toxic, No Acute Distress - Head Exam Head Exam: ATRAUMATIC, NORMAL INSPECTION, NORMOCEPHALIC - Eye Exam Eye Exam: EOMI, Normal appearance - ENT Exam ENT Exam: Mucous Membranes Moist, Normal Exam - Neck Exam Neck exam: Positive for: Full Rom, Normal Inspection - Respiratory Exam Respiratory Exam: NORMAL BREATHING PATTERN. absent: Chest Wall Tenderness - Cardiovascular Exam Cardiovascular Exam: REGULAR RHYTHM, +S1, +S2 - GI/Abdominal Exam GI & Abdominal Exam: Normal Bowel Sounds, Soft - Extremities Exam Extremities exam: Positive for: normal inspection - Neurological Exam Neurological exam: Alert, CN II-XII Intact, Oriented x3 - Psychiatric Exam Psychiatric exam: Normal Affect, Normal Mood - Skin Skin Exam: Dry, Intact, Normal Color, Warm Additional comments: Left breast with area of fluctuance under areola, approximately 3 x 2 cm, non tender, no erythema, no drainage, surrounding induration noted Results - Vital Signs Recent Vital Signs: Last Vital Signs Temp 97.5 F L 03/30/17 15:40 Pulse 67 03/30/17 15:40 Resp 18 03/30/17 15:40 BP 125/73 03/30/17 15:40 Pulse Ox 99 03/30/17 15:40 - Labs Result Diagrams: 03/27/17 13:11 03/27/17 13:11 Labs: Laboratory Results - last 24 hr 03/29/17 03/30/17 03/30/17 21:50 05:11 11:06 POC Glucose (mg/dL) 123 H 149 H 168 H 03/30/17 16:06 POC Glucose (mg/dL) 155 H Assessment & Plan - Assessment and Plan (Free Text) Assessment: 51F w/PMH sig for DM, HLD consulted for L breast abscess, possible I & D Plan: L breast U/S for evaluation IV Abx Pain mgmt FU AM labs NPO after MN except meds Hold anticoagulation at MN ID following Further mgmt as per imaging Will DW attending Larisa, PGY-1 - Date & Time Date: 03/30/17 Time: 16:00 <Riki Marie - Last Filed: 03/31/17 16:33> History of Present Illness - History of Present Illness History of Present Illness: Patient was seen and examined at the bedside. Agree with resident's note above. Meds - Medications Medications: Current Medications Glipizide (Glucotrol Xl) 10 mg PO BID@0800,1700 [facility] Last Admin: 03/31/17 16:29 Dose: 10 mg Heparin Sodium (Porcine) (Heparin) 5,000 units SC Q8 [facility] PRN Reason: Protocol Last Admin: 03/30/17 16:14 Dose: 5,000 units Vancomycin HCl 1 gm/ Sodium (Chloride) 250 mls @ 166.667 mls/hr IVPB Q12 [facility] PRN Reason: Protocol Last Admin: 03/31/17 08:31 Dose: 166.667 mls/hr Lactated Ringer's (Lactated Ringer's) 1,000 mls @ 125 mls/hr IV .Q8H [facility] Last Admin: 03/31/17 16:10 Dose: Not Given Piperacillin Sod/Tazobactam (Sod 3.375 gm/ Sodium Chloride) 100 mls @ 100 mls/ hr IVPB Q8 [facility] PRN Reason: Protocol Last Admin: 03/31/17 16:28 Dose: 100 mls/hr Insulin Human Regular (Humulin R) 0 units SC ACHS [facility] PRN Reason: Protocol Last Admin: 03/31/17 16:29 Dose: Not Given Metformin HCl (Glucophage) 1,000 mg PO BID@0800,1700 [facility] Last Admin: 03/31/17 16:29 Dose: 1,000 mg Sitagliptin Phosphate (Januvia) 100 mg PO DAILY [facility] Last Admin: 03/31/17 16:29 Dose: 100 mg Zolpidem Tartrate (Ambien) 5 mg PO HS PRN PRN Reason: Insomnia Last Admin: 03/30/17 22:47 Dose: 5 mg Results - Vital Signs Recent Vital Signs: Last Vital Signs Temp 97.2 F L 03/31/17 16:03 Pulse 86 03/31/17 16:03 Resp 18 03/31/17 16:03 BP 103/67 03/31/17 16:03 Pulse Ox 96 03/31/17 16:03 - Labs Result Diagrams: 03/31/17 05:35 03/31/17 05:35 Labs: Laboratory Results - last 24 hr 03/30/17 03/31/17 03/31/17 21:39 05:28 05:35 WBC 6.8 RBC 4.20 Hgb 13.3 Hct 37.9 MCV 90.1 MCH 31.7 H MCHC 35.2 RDW 12.6 Plt Count 270 PT INR APTT Sodium Potassium Chloride Carbon Dioxide Anion Gap BUN Creatinine Est GFR ( Amer) Est GFR (Non-Af Amer) POC Glucose (mg/dL) 172 H 160 H Random Glucose Calcium Beta HCG, Quant 03/31/17 03/31/17 03/31/17 05:35 05:35 08:21 WBC RBC Hgb Hct MCV MCH MCHC RDW Plt Count PT 14.2 H INR 1.3 H APTT 30.6 Sodium 139 Potassium 4.1 Chloride 104 Carbon Dioxide 23 Anion Gap 16 BUN 14 Creatinine 0.6 L Est GFR ( Amer) > 60 Est GFR (Non-Af Amer) > 60 POC Glucose (mg/dL) Random Glucose 174 H Calcium 9.6 Beta HCG, Quant < 2.39 03/31/17 03/31/17 10:47 15:48 WBC RBC Hgb Hct MCV MCH MCHC RDW Plt Count PT INR APTT Sodium Potassium Chloride Carbon Dioxide Anion Gap BUN Creatinine Est GFR ( Amer) Est GFR (Non-Af Amer) POC Glucose (mg/dL) 128 H 150 H Random Glucose Calcium Beta HCG, Quant
[2017-03-30] MEDS: Lactated Ringer's 1,000 ML IV SCH (22:47)
--- NOTE | 2017-03-31 01:58 | CP.PCM.PN ---
Subjective - Date & Time of Evaluation Date of Evaluation: 03/30/17 Time of Evaluation: 14:20 Objective - Vital Signs/Intake and Output Vital Signs (last 24 hours): Temp Pulse Resp BP Pulse Ox 97.8 F 88 18 118/71 97 03/30/17 23:38 03/30/17 23:38 03/30/17 23:38 03/30/17 23:38 03/30/17 23:38 - Medications Medications: Current Medications Glipizide (Glucotrol Xl) 10 mg PO BID@0800,1700 [facility] Last Admin: 03/30/17 16:14 Dose: 10 mg Heparin Sodium (Porcine) (Heparin) 5,000 units SC Q8 [facility] PRN Reason: Protocol Last Admin: 03/30/17 16:14 Dose: 5,000 units Vancomycin HCl 1 gm/ Sodium (Chloride) 250 mls @ 166.667 mls/hr IVPB Q12 [facility] PRN Reason: Protocol Last Admin: 03/30/17 20:50 Dose: 166.667 mls/hr Lactated Ringer's (Lactated Ringer's) 1,000 mls @ 125 mls/hr IV .Q8H [facility] Last Admin: 03/30/17 22:47 Dose: 125 mls/hr Insulin Human Regular (Humulin R) 0 units SC ACHS [facility] PRN Reason: Protocol Last Admin: 03/30/17 22:50 Dose: Not Given Metformin HCl (Glucophage) 1,000 mg PO BID@0800,1700 [facility] Last Admin: 03/30/17 16:14 Dose: 1,000 mg Sitagliptin Phosphate (Januvia) 100 mg PO DAILY [facility] Last Admin: 03/30/17 08:27 Dose: 100 mg Zolpidem Tartrate (Ambien) 5 mg PO HS PRN PRN Reason: Insomnia Last Admin: 03/30/17 22:47 Dose: 5 mg - Labs Labs: 03/27/17 13:11 03/27/17 13:11
[2017-03-31 06:34] LABS: HEMOGLOBIN 13.3 g/dL (12.0-16.0); MEAN CELL VOLUME 90.1 fl (81.0-99.0); MEAN CORPUSCULAR HEMOGLOBIN 31.7 pg (27.0-31.0); MEAN CORPUSCULAR HGB CONC 35.2 g/dL (33.0-37.0); RBC 4.2 Mil/uL (3.80-5.20); RED CELL DISTRIBUTION WIDTH 12.6 % (11.5-14.5); WHITE BLOOD COUNT 6.8 K/uL (4.8-10.8)
[2017-03-31 06:44] LABS: BLOOD UREA NITROGEN 14 mg/dl (7-17); CALCIUM 9.6 mg/dL (8.4-10.2); GFR AFRICAN-AMERICAN > 60; GFR NON-AFRICAN AMERICAN > 60
[2017-03-31 07:01] LABS: INR 1.3 (0.9-1.2); PROTHROMBIN TIME 14.2 Seconds (9.8-13.1)
[2017-03-31 07:02] LABS: PARTIAL THROMBOPLASTIN TIME 30.6 Seconds (25.6-37.1)
--- NOTE | 2017-03-31 07:29 | CP.PCM.PN ---
<LeandroCarmine kurtzlauren Garg - Last Filed: 03/31/17 07:27> Subjective - Date & Time of Evaluation Date of Evaluation: 03/31/17 Time of Evaluation: 07:27 - Subjective Subjective: General Surgery: Dr Juarez Pt S&E. ROBBIE. Reports less discomfort since being started in IV abx. grout machine tender to palpation. Denies any f/c. Aware of plan for US and possible OR. Objective - Vital Signs/Intake and Output Vital Signs (last 24 hours): Temp Pulse Resp BP Pulse Ox 97.8 F 88 18 118/71 97 03/30/17 23:38 03/30/17 23:38 03/30/17 23:38 03/30/17 23:38 03/30/17 23:38 - Medications Medications: Current Medications Glipizide (Glucotrol Xl) 10 mg PO BID@0800,1700 [facility] Last Admin: 03/30/17 16:14 Dose: 10 mg Heparin Sodium (Porcine) (Heparin) 5,000 units SC Q8 CAROLE PRN Reason: Protocol Last Admin: 03/30/17 16:14 Dose: 5,000 units Vancomycin HCl 1 gm/ Sodium (Chloride) 250 mls @ 166.667 mls/hr IVPB Q12 CAROLE PRN Reason: Protocol Last Admin: 03/30/17 20:50 Dose: 166.667 mls/hr Lactated Ringer's (Lactated Ringer's) 1,000 mls @ 125 mls/hr IV .Q8H [facility] Last Admin: 03/30/17 22:47 Dose: 125 mls/hr Insulin Human Regular (Humulin R) 0 units SC ACHS CAROLE PRN Reason: Protocol Last Admin: 03/30/17 22:50 Dose: Not Given Metformin HCl (Glucophage) 1,000 mg PO BID@0800,1700 [facility] Last Admin: 03/30/17 16:14 Dose: 1,000 mg Sitagliptin Phosphate (Januvia) 100 mg PO DAILY [facility] Last Admin: 03/30/17 08:27 Dose: 100 mg Zolpidem Tartrate (Ambien) 5 mg PO HS PRN PRN Reason: Insomnia Last Admin: 03/30/17 22:47 Dose: 5 mg - Labs Labs: 03/31/17 05:35 03/31/17 05:35 PT 14.2 Seconds (9.8-13.1) H 03/31/17 05:35 INR 1.3 (0.9-1.2) H 03/31/17 05:35 APTT 30.6 Seconds (25.6-37.1) 03/31/17 05:35 - Constitutional Appears: Non-toxic, No Acute Distress - Head Exam Head Exam: NORMAL INSPECTION - ENT Exam ENT Exam: Mucous Membranes Moist - Respiratory Exam Respiratory Exam: absent: Accessory Muscle Use, Respiratory Distress - Cardiovascular Exam Cardiovascular Exam: REGULAR RHYTHM. absent: Tachycardia - GI/Abdominal Exam GI & Abdominal Exam: Soft. absent: Distended, Tenderness - Skin Additional comments: 2x1 fluctuant area 9' oclock position behind left areola Assessment and Plan - Assessment and Plan (Free Text) Assessment: 51F with left breast abscess Plan: cont IV abx cont NPO B-HCG urine f/u breast US possible OR to follow will restart diet if no OR planned will d/w Dr Juarez pending results of imaging Leandro, PGY3 <Riki Marie - Last Filed: 03/31/17 16:37> Subjective - Date & Time of Evaluation Time of Evaluation: 16:00 - Subjective Subjective: Patient was seen and examined at the bedside. Agree with resident's note above. Breast ultrasound results noted, no drainable abscess Objective - Vital Signs/Intake and Output Vital Signs (last 24 hours): Temp Pulse Resp BP Pulse Ox 97.2 F L 86 18 103/67 96 03/31/17 16:03 03/31/17 16:03 03/31/17 16:03 03/31/17 16:03 03/31/17 16:03 - Medications Medications: Current Medications Glipizide (Glucotrol Xl) 10 mg PO BID@0800,1700 [facility] Last Admin: 03/31/17 16:29 Dose: 10 mg Heparin Sodium (Porcine) (Heparin) 5,000 units SC Q8 CAROLE PRN Reason: Protocol Last Admin: 03/30/17 16:14 Dose: 5,000 units Vancomycin HCl 1 gm/ Sodium (Chloride) 250 mls @ 166.667 mls/hr IVPB Q12 CAROLE PRN Reason: Protocol Last Admin: 03/31/17 08:31 Dose: 166.667 mls/hr Lactated Ringer's (Lactated Ringer's) 1,000 mls @ 125 mls/hr IV .Q8H [facility] Last Admin: 03/31/17 16:10 Dose: Not Given Piperacillin Sod/Tazobactam (Sod 3.375 gm/ Sodium Chloride) 100 mls @ 100 mls/ hr IVPB Q8 CAROLE PRN Reason: Protocol Last Admin: 03/31/17 16:28 Dose: 100 mls/hr Insulin Human Regular (Humulin R) 0 units SC ACHS CAROLE PRN Reason: Protocol Last Admin: 03/31/17 16:29 Dose: Not Given Metformin HCl (Glucophage) 1,000 mg PO BID@0800,1700 [facility] Last Admin: 03/31/17 16:29 Dose: 1,000 mg Sitagliptin Phosphate (Januvia) 100 mg PO DAILY [facility] Last Admin: 03/31/17 16:29 Dose: 100 mg Zolpidem Tartrate (Ambien) 5 mg PO HS PRN PRN Reason: Insomnia Last Admin: 03/30/17 22:47 Dose: 5 mg - Labs Labs: 03/31/17 05:35 03/31/17 05:35 PT 14.2 Seconds (9.8-13.1) H 03/31/17 05:35 INR 1.3 (0.9-1.2) H 03/31/17 05:35 APTT 30.6 Seconds (25.6-37.1) 03/31/17 05:35 Assessment and Plan - Assessment and Plan (Free Text) Plan: - Regular diet - Continue antibiotics - pain control - Repeat labs in am - No general surgery intervention at present time - Will follow
[2017-03-31] MEDS: GlipiZIDE 10 mg SR Tab PO SCH ×2 (08:25→16:29)
[2017-03-31] MEDS: Lactated Ringer's 1,000 ML IV SCH ×2 (08:25→16:10)
[2017-03-31] MEDS: Insulin Regular 100 units/ml SC SCH ×4 (08:25→22:32)
--- NOTE | 2017-03-31 10:02 | US ---
PROCEDURE: Diagnostic left breast ultrasound examination HISTORY: L breast abscess eval COMPARISON: None available TECHNIQUE: Targeted ultrasound examination left retroareolar FINDINGS: No nikko liquefaction. There is a focal area of heterogeneity of breast parenchyma measuring approximately 3.8 x 1.9 x 2.5 cm. Vessels are seen to course through this tissue on color Doppler interrogation. Consistent with focal bacterial infection by clinical history. No evidence of abscess. Cannot rule out neoplasm. Followup to clearing with ultrasound examination is advised to exclude underlying neoplasm. No additional abnormality identified. IMPRESSION: No evidence of abscess. Focal area of heterogeneity in the region of concern, retroareolar left breast, 3.8 cm greatest dimension. Follow-up with ultrasound to clearing is advised to exclude underlying neoplasm. BIRADS 3 Probably BenignRecommendation: Short interval followup targeted ultrasound after clearing of clinical symptoms to exclude underlying neoplasm.
--- NOTE | 2017-03-31 12:42 | CP.PCM.CON ---
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 Also noted in cx was coagulase neg staph strain susceptible to cephelexin/pcn/ clinda and coag neg staph strain 2 susceptible to bactrim/keflex. Patient has been ampicillin x 2 days without improvement of symptoms. Denies any fevers/chills. Sent by pmd Dr. Jeronimo for admission and iv antibiotics. left breast tender warm swollen ) - Medical History PMH: Diabetes, Hypercholesterolemia Denies: Chronic Kidney Disease - Surgical History Surgical History: Appendectomy, Tonsillectomy, Review of Systems - Constitutional Constitutional: As Per HPI. absent: Chills, Fever - EENT Eyes: absent: As Per HPI, Blind Spots, Blurred Vision, Change in Vision, Decreased Night Vision, Diplopia, Discharge, Dry Eye, Exophthalmos, Floaters, Irritation, Itchy Eyes, Loss of Peripheral Vision, Pain, Photophobia, Requires Corrective Lenses, Sees Flashes, Spots in Vision, Tunnel Vision, Other Visual Disturbances, Loss of Vision, Other Ears: absent: As Per HPI, Decreased Hearing, Ear Discharge, Ear Pain, Tinnitus, Abnormal Hearing, Disequilibrium, Dizziness, Other Nose/Mouth/Throat: absent: As Per HPI, Epistaxis, Nasal Congestion, Nasal Discharge, Nasal Obstruction, Nasal Trauma, Nose Pain, Post Nasal Drip, Sinus Pain, Sinus Pressure, Bleeding Gums, Change in Voice, Dental Pain, Dry Mouth, Dysphagia, Halitosis, Hoarsness, Lip Swelling, Mouth Lesions, Mouth Pain, Odynophagia, Sore Throat, Throat Swelling, Tongue Swelling, Facial Pain, Neck Pain, Neck Mass, Other - Cardiovascular Cardiovascular: absent: As Per HPI, Acrocyanosis, Chest Pain, Chest Pain at Rest , Chest Pain with Activity, Claudication, Diaphoresis, Dyspnea, Dyspnea on Exertion, Edema, Irregular Heart Rhythm, Pain Radiating to Arm/Neck/Jaw, Leg Edema, Leg Ulcers, Lightheadedness, Orthopnea, Palpitations, Paroxysmal Nocturnal Dyspnea, Pedal Edema, Radiating Pain, Rapid Heart Rate, Slow Heart Rate, Syncope, Other - Respiratory Respiratory: absent: As Per HPI, Cough, Dyspnea, Hemoptysis, Dyspnea on Exertion , Wheezing, Snoring, Stridor, Pain on Inspiration, Chest Congestion, Excessive Mucous Production, Change in Mucous Color, Pain with Coughing, Other - Gastrointestinal Gastrointestinal: absent: As Per HPI, Abdominal Pain, Belching, Bloating, Change in Bowel Habits, Change in Stool Character, Coffee Ground Emesis, Constipation, Cramping, Diarrhea, Dyspepsia, Dysphagia, Early Satiety, Excessive Flatus, Fecal Incontinence, Heartburn, Hematemesis, Hematochezia, Loose Stools, Melena, Nausea, Odynophagia, Temesmus, Vomiting, Other - Genitourinary Genitourinary: absent: As Per HPI, Change in Urinary Stream, Difficulty Urinating, Dysuria, Flank Pain, Hematuria, Pyuria, Nocturia, Urinary Incontinence, Urinary Frequency, Urinary Hesitance, Urinary Urgency, Voiding Freq/Small Amts, Freq UTI, Hx Renal/Bladder Calculi, Hx /Renal Surgery, Bladder Distension, Other - Reproductive: Female Reproductive:Female: absent: As Per HPI, Amenorrhea, Amenorrhea/ Control, Currently Menstual, Cycle <21 Days, Cycle >35 Days, Cycle Variable, Menses 1-7 Days, Menses >/= 8 Days, Menses Variable, Cycle > 4 Weeks Between, No Menses for 6 Months, Heavy Menses, Light Menses, Normal Menses, Spotting Between Cycles , S/P Hysterectomy, Menopausal, Post Menopausal, Premenarche, Abnormal Vaginal Bleeding, Dysmenorrhea, Dyspareunia, Genital Lesions, Genital Pruritis, Pelvic Pain, Prolapse Symptoms, Sexual Dysfunction, Vaginal Discharge, Vaginal Dryness , Vaginal Odor, Vaginal Pruritis, Other - Menstruation Menstruation: absent: As Per HPI, Amenorrhea, Amenorrhea/ Control, Currently Menstual, Cycle <21 Days, Cycle >35 Days, Cycle Variable, Menses 1-7 Days, Menses >/= 8 Days, Menses Variable, Cycle > 4 Weeks Between, No Menses for 6 Months, Heavy Menses, Light Menses, Normal Menses, Spotting Between Cycles , S/P Hysterectomy, Menopausal, Post Menopausal, Premenarche, Abnormal Vaginal Bleeding, Dysmenorrhea, Other - Musculoskeletal Musculoskeletal: absent: As Per HPI, Abnormal Gait, Arthralgias, Atrophy, Back Pain, Deformity, Joint Swelling, Limited Range of Motion, Loss of Height, Muscle Cramps, Muscle Weakness, Myalgias, Neck Pain, Numbness, Radiating Pain into Limb, Stiffness, Tingling, Other - Integumentary Integumentary: As Per HPI - Neurological Neurological: absent: As Per HPI, Abnormal Gait, Abnormal Hearing, Abnormal Movements, Abnormal Speech, Behavioral Changes, Burning Sensations, Confusion, Convulsions, Disequilibrium, Dizziness, Numbness, Focal Weakness, Frequent Falls , Headaches, Lack of Coordination, Loss of Vision, Memory Loss, Paresthesias, Radicular Pain, Restless Legs, Sensory Deficit, Syncope, Tingling, Tremor, Vertigo, Weakness, Other Visual Disturbances, Other - Psychiatric Psychiatric: absent: As Per HPI, Abnormal Sleep Pattern, Anhedonia, Anxiety, Auditory Hallucinations, Behavioral Changes, Change in Appetite, Change in Libido, Confusion, Depression, Difficulty Concentrating, Hallucinations, Homicidal Ideation, Hopelessness, Irritability, Memory Loss, Mood Swings, Panic Attacks, Paranoia, Suicidal Ideation, Visual Hallucinations, Tactile Hallucinations, Other - Endocrine Endocrine: absent: As Per HPI, Change in Body Appearance, Change in Libido, Cold Intolorance, Deepening of Voice, Excessive Sweating, Fatigue, Flushing, Heat Intolorance, Increase in Ring/Shoe/Hat Size, Palpitations, Polydipsia, Polyphagia, Polyuria, Other - Hematologic/Lymphatic Hematologic: absent: As Per HPI, Easy Bleeding, Easy Bruising, Lymphadenopathy, Other Past Patient History - Past Medical History & Family History Past Medical History?: Yes - Past Social History Smoking Status: Never Smoked - CARDIAC Hx Hypercholesterolemia: Yes - PULMONARY Hx Respiratory Disorders: No - NEUROLOGICAL Hx Neurological Disorder: No - HEENT Hx HEENT Problems: No - RENAL Hx Chronic Kidney Disease: No - ENDOCRINE/METABOLIC Hx Endocrine Disorders: Yes Hx Diabetes Mellitus Type 2: Yes - HEMATOLOGICAL/ONCOLOGICAL Hx Blood Disorders: No - INTEGUMENTARY Hx Dermatological Problems: No - MUSCULOSKELETAL/RHEUMATOLOGICAL Hx Musculoskeletal Disorders: No Hx Falls: No - GASTROINTESTINAL Hx Gastrointestinal Disorders: No - GENITOURINARY/GYNECOLOGICAL Hx Genitourinary Disorders: No - PSYCHIATRIC Hx Emotional Abuse: No Hx Physical Abuse: No Hx Substance Use: No - SURGICAL HISTORY Hx Appendectomy: Yes Hx Tonsillectomy: Yes - ANESTHESIA Hx Anesthesia: Yes Hx Anesthesia Reactions: No Hx Malignant Hyperthermia: No Meds Allergies/Adverse Reactions: Allergies Allergy/AdvReac Type Severity Reaction Status Date / Time No Known Allergies Allergy Verified 03/17/17 21:52 - Medications Medications: Current Medications Glipizide (Glucotrol Xl) 10 mg PO BID@0800,1700 [facility] Last Admin: 03/31/17 08:25 Dose: Not Given Heparin Sodium (Porcine) (Heparin) 5,000 units SC Q8 CAROLE PRN Reason: Protocol Last Admin: 03/30/17 16:14 Dose: 5,000 units Vancomycin HCl 1 gm/ Sodium (Chloride) 250 mls @ 166.667 mls/hr IVPB Q12 [facility]OLE PRN Reason: Protocol Last Admin: 03/31/17 08:31 Dose: 166.667 mls/hr Lactated Ringer's (Lactated Ringer's) 1,000 mls @ 125 mls/hr IV .Q8H [facility] Last Admin: 03/31/17 08:25 Dose: Not Given Insulin Human Regular (Humulin R) 0 units SC ACHS CAROLE PRN Reason: Protocol Last Admin: 03/31/17 12:31 Dose: Not Given Metformin HCl (Glucophage) 1,000 mg PO BID@0800,1700 [facility] Last Admin: 03/31/17 08:25 Dose: Not Given Sitagliptin Phosphate (Januvia) 100 mg PO DAILY [facility] Last Admin: 03/31/17 08:25 Dose: Not Given Zolpidem Tartrate (Ambien) 5 mg PO HS PRN PRN Reason: Insomnia Last Admin: 03/30/17 22:47 Dose: 5 mg Physical Exam - Constitutional Appears: Non-toxic, Chronically Ill - Head Exam Head Exam: NORMOCEPHALIC - Eye Exam Eye Exam: PERRL. absent: Scleral icterus - ENT Exam ENT Exam: Mucous Membranes Dry, Normal External Ear Exam - Neck Exam Neck exam: Negative for: Lymphadenopathy - Respiratory Exam Respiratory Exam: Decreased Breath Sounds, Clear to Auscultation Bilateral - Cardiovascular Exam Cardiovascular Exam: REGULAR RHYTHM, +S1, +S2 - GI/Abdominal Exam GI & Abdominal Exam: Diminished Bowel Sounds, Soft. absent: Tenderness - Rectal Exam Rectal Exam: Deferred - Exam Exam: NORMAL INSPECTION - Extremities Exam Extremities exam: Positive for: pedal pulses present. Negative for: calf tenderness, pedal edema, tenderness - Back Exam Back exam: absent: CVA tenderness (L), CVA tenderness (R) - Neurological Exam Neurological exam: Alert, CN II-XII Intact, Oriented x3, Reflexes Normal - Psychiatric Exam Psychiatric exam: Normal Mood - Skin Skin Exam: Dry Additional comments: swollen tender mass above areolar area right breast approx 1.5 cm in diam Results - Vital Signs Recent Vital Signs: Last Vital Signs Temp 98.3 F 03/31/17 07:54 Pulse 76 03/31/17 07:54 Resp 20 03/31/17 07:54 BP 137/74 03/31/17 07:54 Pulse Ox 96 03/31/17 07:54 - Labs Result Diagrams: 03/31/17 05:35 03/31/17 05:35 Labs: Laboratory Results - last 24 hr 03/30/17 03/30/17 03/30/17 11:06 16:06 21:39 WBC RBC Hgb Hct MCV MCH MCHC RDW Plt Count PT INR APTT Sodium Potassium Chloride Carbon Dioxide Anion Gap BUN Creatinine Est GFR ( Amer) Est GFR (Non-Af Amer) POC Glucose (mg/dL) 168 H 155 H 172 H Random Glucose Calcium Beta HCG, Quant 03/31/17 03/31/17 03/31/17 05:28 05:35 05:35 WBC 6.8 RBC 4.20 Hgb 13.3 Hct 37.9 MCV 90.1 MCH 31.7 H MCHC 35.2 RDW 12.6 Plt Count 270 PT 14.2 H INR 1.3 H APTT 30.6 Sodium Potassium Chloride Carbon Dioxide Anion Gap BUN Creatinine Est GFR ( Amer) Est GFR (Non-Af Amer) POC Glucose (mg/dL) 160 H Random Glucose Calcium Beta HCG, Quant 03/31/17 03/31/17 03/31/17 05:35 08:21 10:47 WBC RBC Hgb Hct MCV MCH MCHC RDW Plt Count PT INR APTT Sodium 139 Potassium 4.1 Chloride 104 Carbon Dioxide 23 Anion Gap 16 BUN 14 Creatinine 0.6 L Est GFR ( Amer) > 60 Est GFR (Non-Af Amer) > 60 POC Glucose (mg/dL) 128 H Random Glucose 174 H Calcium 9.6 Beta HCG, Quant < 2.39 Assessment & Plan (1) Abscess of breast Status: Acute (2) Cellulitis of breast Status: Acute - Assessment and Plan (Free Text) Assessment: cont iv rx and wound care possible I and D
[2017-03-31 16:04] VITALS: RESP 18
[2017-03-31] MEDS: Piperacillin/Tazobact 3.375 GM in Sodium Chloride 0.9% 100 ML IVPB SCH ×2 (16:28→16:39)
[2017-03-31] MEDS: Benzocaine/Menthol (Cepacol) Lozenge PO PRN (21:21)
[2017-03-31 23:37] VITALS: O2SAT 97
[2017-04-01] MEDS: Piperacillin/Tazobact 3.375 GM in Sodium Chloride 0.9% 100 ML IVPB SCH ×2 (00:56→09:10)
[2017-04-01] MEDS: Lactated Ringer's 1,000 ML IV SCH (01:04)
--- NOTE | 2017-04-01 01:07 | CP.PCM.PN ---
Subjective - Date & Time of Evaluation Date of Evaluation: 03/31/17 Time of Evaluation: 19:15 Objective - Vital Signs/Intake and Output Vital Signs (last 24 hours): Temp Pulse Resp BP Pulse Ox 97.9 F 89 18 121/78 97 03/31/17 23:36 03/31/17 23:36 03/31/17 23:36 03/31/17 23:36 03/31/17 23:36 - Medications Medications: Current Medications Benzocaine/Menthol (Cepacol Sore Throat) 1 cortney PO Q4 PRN PRN Reason: Sore Throat Last Admin: 03/31/17 21:21 Dose: 1 cortney Glipizide (Glucotrol Xl) 10 mg PO BID@0800,1700 [facility] Last Admin: 03/31/17 16:29 Dose: 10 mg Heparin Sodium (Porcine) (Heparin) 5,000 units SC Q8 [facility] PRN Reason: Protocol Last Admin: 04/01/17 00:56 Dose: 5,000 units Vancomycin HCl 1 gm/ Sodium (Chloride) 250 mls @ 166.667 mls/hr IVPB Q12 [facility] PRN Reason: Protocol Last Admin: 03/31/17 21:22 Dose: 166.667 mls/hr Lactated Ringer's (Lactated Ringer's) 1,000 mls @ 125 mls/hr IV .Q8H [facility] Last Admin: 04/01/17 01:04 Dose: Not Given Piperacillin Sod/Tazobactam (Sod 3.375 gm/ Sodium Chloride) 100 mls @ 100 mls/ hr IVPB Q8 [facility] PRN Reason: Protocol Last Admin: 04/01/17 00:56 Dose: 100 mls/hr Insulin Human Regular (Humulin R) 0 units SC ACHS [facility] PRN Reason: Protocol Last Admin: 03/31/17 22:32 Dose: Not Given Metformin HCl (Glucophage) 1,000 mg PO BID@0800,1700 [facility] Last Admin: 03/31/17 16:29 Dose: 1,000 mg Sitagliptin Phosphate (Januvia) 100 mg PO DAILY [facility] Last Admin: 03/31/17 16:29 Dose: 100 mg Zolpidem Tartrate (Ambien) 5 mg PO HS PRN PRN Reason: Insomnia Last Admin: 03/30/17 22:47 Dose: 5 mg - Labs Labs: 03/31/17 05:35 03/31/17 05:35 PT 14.2 Seconds (9.8-13.1) H 03/31/17 05:35 INR 1.3 (0.9-1.2) H 03/31/17 05:35 APTT 30.6 Seconds (25.6-37.1) 03/31/17 05:35
[2017-04-01 06:23] LABS: BASO % 0.3 % (0.0-2.0); EOS # 0.2 K/uL (0.0-0.7); EOS % 3.1 % (0.0-4.0); HEMOGLOBIN 13.1 g/dL (12.0-16.0); LYMPH # 1.9 K/uL (1.0-4.3); LYMPH % 25.5 % (20.0-40.0); MEAN CELL VOLUME 92.1 fl (81.0-99.0); MEAN CORPUSCULAR HEMOGLOBIN 31.3 pg (27.0-31.0); MONO # 0.6 K/uL (0.0-0.8); NEUT # 4.6 K/uL (1.8-7.0); NEUT % 63.1 % (50.0-75.0); RBC 4.19 Mil/uL (3.80-5.20); RED CELL DISTRIBUTION WIDTH 12.6 % (11.5-14.5); WHITE BLOOD COUNT 7.4 K/uL (4.8-10.8)
[2017-04-01] MEDS: Insulin Regular 100 units/ml SC SCH ×2 (07:30→11:30)
[2017-04-01 07:47] VITALS: BP 100/65; PULSE 81; TEMP 98.1
[2017-04-01] MEDS: GlipiZIDE 10 mg SR Tab PO SCH (09:06)
[2017-04-01] MEDS: Benzocaine/Menthol (Cepacol) Lozenge PO PRN (09:27)
[2017-04-01] MEDS ORDERED: guaiFENesin 100 mg/5 ml Syrup UD PO PRN (11:16)
[2017-04-01] MEDS ORDERED: guaiFENesin-DM 600-30 mg ER Tab PO SCH (11:17)
--- NOTE | 2017-04-01 12:08 | CP.PCM.PN ---
Subjective - Date & Time of Evaluation Date of Evaluation: 04/01/17 Time of Evaluation: 08:00 - Subjective Subjective: less pain and swelling ] no fever Objective - Vital Signs/Intake and Output Vital Signs (last 24 hours): Temp Pulse Resp BP Pulse Ox 98.1 F 81 18 100/65 97 04/01/17 07:46 04/01/17 07:46 04/01/17 07:46 04/01/17 07:46 04/01/17 07:46 - Medications Medications: Current Medications Benzocaine/Menthol (Cepacol Sore Throat) 1 cortney PO Q4 PRN PRN Reason: Sore Throat Last Admin: 04/01/17 09:27 Dose: 1 cortney Fluticasone Propionate (Flonase) 1 spr KIMBERLEE BID [facility] Glipizide (Glucotrol Xl) 10 mg PO BID@0800,1700 [facility] Last Admin: 04/01/17 09:06 Dose: 10 mg Guaifenesin (Robitussin) 100 mg PO Q6 PRN PRN Reason: Cough Guaifenesin/Dextromethorphan (Mucinex-Dm 600-30 Mg) 1 tab PO BID [facility] Heparin Sodium (Porcine) (Heparin) 5,000 units SC Q8 [facility] PRN Reason: Protocol Last Admin: 04/01/17 09:08 Dose: 5,000 units Vancomycin HCl 1 gm/ Sodium (Chloride) 250 mls @ 166.667 mls/hr IVPB Q12 [facility] PRN Reason: Protocol Last Admin: 04/01/17 09:13 Dose: 166.667 mls/hr Lactated Ringer's (Lactated Ringer's) 1,000 mls @ 125 mls/hr IV .Q8H [facility] Last Admin: 04/01/17 01:04 Dose: Not Given Piperacillin Sod/Tazobactam (Sod 3.375 gm/ Sodium Chloride) 100 mls @ 100 mls/ hr IVPB Q8 [facility] PRN Reason: Protocol Last Admin: 04/01/17 09:10 Dose: 100 mls/hr Insulin Human Regular (Humulin R) 0 units SC ACHS [facility] PRN Reason: Protocol Last Admin: 04/01/17 07:30 Dose: Not Given Metformin HCl (Glucophage) 1,000 mg PO BID@0800,1700 [facility] Last Admin: 04/01/17 09:06 Dose: 1,000 mg Sitagliptin Phosphate (Januvia) 100 mg PO DAILY [facility] Last Admin: 04/01/17 09:06 Dose: 100 mg Zolpidem Tartrate (Ambien) 5 mg PO HS PRN PRN Reason: Insomnia Last Admin: 03/30/17 22:47 Dose: 5 mg - Labs Labs: 04/01/17 05:45 03/31/17 05:35 PT 14.2 Seconds (9.8-13.1) H 03/31/17 05:35 INR 1.3 (0.9-1.2) H 03/31/17 05:35 APTT 30.6 Seconds (25.6-37.1) 03/31/17 05:35 - Constitutional Appears: Non-toxic, Chronically Ill - Head Exam Head Exam: NORMOCEPHALIC - Eye Exam Eye Exam: PERRL - ENT Exam ENT Exam: Mucous Membranes Dry - Neck Exam Neck Exam: absent: Lymphadenopathy - Respiratory Exam Respiratory Exam: Decreased Breath Sounds - Cardiovascular Exam Cardiovascular Exam: REGULAR RHYTHM - GI/Abdominal Exam GI & Abdominal Exam: Distended, Soft - Rectal Exam Rectal Exam: Deferred - Exam Exam: NORMAL INSPECTION Assessment and Plan (1) Abscess of breast Status: Acute (2) Cellulitis of breast Status: Acute - Assessment and Plan (Free Text) Assessment: d/c on po [id number]
--- NOTE | 2017-04-01 12:24 | CP.PCM.PN ---
Subjective - Date & Time of Evaluation Date of Evaluation: 04/01/17 Time of Evaluation: 10:05 - Subjective Subjective: Patient was seen and examined at the bedside. Denies any pain to the left breast, states that feels much better. Objective - Vital Signs/Intake and Output Vital Signs (last 24 hours): Temp Pulse Resp BP Pulse Ox 98.1 F 81 18 100/65 97 04/01/17 07:46 04/01/17 07:46 04/01/17 07:46 04/01/17 07:46 04/01/17 07:46 - Medications Medications: Current Medications Benzocaine/Menthol (Cepacol Sore Throat) 1 cortney PO Q4 PRN PRN Reason: Sore Throat Last Admin: 04/01/17 09:27 Dose: 1 cortney Fluticasone Propionate (Flonase) 1 spr KIMBERLEE BID [facility] Glipizide (Glucotrol Xl) 10 mg PO BID@0800,1700 [facility] Last Admin: 04/01/17 09:06 Dose: 10 mg Guaifenesin (Robitussin) 100 mg PO Q6 PRN PRN Reason: Cough Guaifenesin/Dextromethorphan (Mucinex-Dm 600-30 Mg) 1 tab PO BID [facility] Heparin Sodium (Porcine) (Heparin) 5,000 units SC Q8 [facility] PRN Reason: Protocol Last Admin: 04/01/17 09:08 Dose: 5,000 units Vancomycin HCl 1 gm/ Sodium (Chloride) 250 mls @ 166.667 mls/hr IVPB Q12 [facility] PRN Reason: Protocol Last Admin: 04/01/17 09:13 Dose: 166.667 mls/hr Lactated Ringer's (Lactated Ringer's) 1,000 mls @ 125 mls/hr IV .Q8H [facility] Last Admin: 04/01/17 01:04 Dose: Not Given Piperacillin Sod/Tazobactam (Sod 3.375 gm/ Sodium Chloride) 100 mls @ 100 mls/ hr IVPB Q8 [facility] PRN Reason: Protocol Last Admin: 04/01/17 09:10 Dose: 100 mls/hr Insulin Human Regular (Humulin R) 0 units SC ACHS [facility] PRN Reason: Protocol Last Admin: 04/01/17 07:30 Dose: Not Given Metformin HCl (Glucophage) 1,000 mg PO BID@0800,1700 [facility] Last Admin: 04/01/17 09:06 Dose: 1,000 mg Sitagliptin Phosphate (Januvia) 100 mg PO DAILY [facility] Last Admin: 04/01/17 09:06 Dose: 100 mg Zolpidem Tartrate (Ambien) 5 mg PO HS PRN PRN Reason: Insomnia Last Admin: 03/30/17 22:47 Dose: 5 mg - Labs Labs: 04/01/17 05:45 03/31/17 05:35 PT 14.2 Seconds (9.8-13.1) H 03/31/17 05:35 INR 1.3 (0.9-1.2) H 03/31/17 05:35 APTT 30.6 Seconds (25.6-37.1) 03/31/17 05:35 - Constitutional Appears: Well, Non-toxic, No Acute Distress - Head Exam Head Exam: ATRAUMATIC, NORMAL INSPECTION, NORMOCEPHALIC - Eye Exam Eye Exam: EOMI, Normal appearance, PERRL Pupil Exam: NORMAL ACCOMODATION, PERRL - ENT Exam ENT Exam: Mucous Membranes Moist, Normal Exam - Neck Exam Neck Exam: Full ROM, Normal Inspection - Respiratory Exam Respiratory Exam: NORMAL BREATHING PATTERN - Cardiovascular Exam Cardiovascular Exam: REGULAR RHYTHM, +S1, +S2 - GI/Abdominal Exam GI & Abdominal Exam: Soft, Normal Bowel Sounds Additional comments: NT, ND - Rectal Exam Rectal Exam: Deferred - Extremities Exam Extremities Exam: Full ROM, Normal Inspection - Neurological Exam Neurological Exam: Alert, Awake, Oriented x3 - Psychiatric Exam Psychiatric exam: Normal Affect, Normal Mood - Skin Skin Exam: Dry, Intact, Normal Color, Warm - Additional Findings Additional findings: Left breast: no erythema, non tender, small area of hardness to the left breast superior to the nipple Assessment and Plan - Assessment and Plan (Free Text) Assessment: 51 y.o. female with left breast cellulites Plan: - Continue antibiotics as per ID - Pain control - No general surgery intervention at present time - Patient is clear for discharge home from the general surgery stand point
--- NOTE | 2017-04-01 22:55 | CP.PCM.DIS ---
Provider - Provider Date of Admission: 03/27/17 14:25 Attending physician: Nelida Crabtree MD Time Spent in preparation of Discharge (in minutes): 35 Hospital Course - Lab Results Lab Results: Micro Results 03/27/17 13:50 Blood-Venous Blood Culture - Final NO GROWTH AFTER 5 DAYS 03/27/17 13:50 Blood-Venous Gram Stain - Final TEST NOT PERFORMED 03/27/17 Unknown Blood-Venous Blood Culture - Final NO GROWTH AFTER 5 DAYS 03/27/17 Unknown Blood-Venous Gram Stain - Final TEST NOT PERFORMED Most Recent Lab Values WBC 7.4 K/uL (4.8-10.8) 04/01/17 05:45 RBC 4.19 Mil/uL (3.80-5.20) 04/01/17 05:45 Hgb 13.1 g/dL (12.0-16.0) 04/01/17 05:45 Hct 38.6 % (34.0-47.0) 04/01/17 05:45 MCV 92.1 fl (81.0-99.0) D 04/01/17 05:45 MCH 31.3 pg (27.0-31.0) H 04/01/17 05:45 MCHC 34.0 g/dL (33.0-37.0) 04/01/17 05:45 RDW 12.6 % (11.5-14.5) 04/01/17 05:45 Plt Count 246 K/uL (130-400) 04/01/17 05:45 MPV 7.0 fl (7.2-11.7) L 04/01/17 05:45 Neut % (Auto) 63.1 % (50.0-75.0) 04/01/17 05:45 Lymph % (Auto) 25.5 % (20.0-40.0) 04/01/17 05:45 [place] % (Auto) 8.0 % (0.0-10.0) 04/01/17 05:45 Eos % (Auto) 3.1 % (0.0-4.0) 04/01/17 05:45 Baso % (Auto) 0.3 % (0.0-2.0) 04/01/17 05:45 Neut # 4.6 K/uL (1.8-7.0) 04/01/17 05:45 Lymph # 1.9 K/uL (1.0-4.3) 04/01/17 05:45 [place] # 0.6 K/uL (0.0-0.8) 04/01/17 05:45 Eos # 0.2 K/uL (0.0-0.7) 04/01/17 05:45 Baso # 0.0 K/uL (0.0-0.2) 04/01/17 05:45 PT 14.2 Seconds (9.8-13.1) H 03/31/17 05:35 INR 1.3 (0.9-1.2) H 03/31/17 05:35 APTT 30.6 Seconds (25.6-37.1) 03/31/17 05:35 pO2 28 mm/Hg (30-55) L 03/27/17 15:30 VBG pH 7.34 (7.32-7.43) 03/27/17 15:30 VBG pCO2 45 mmHg (40-60) 03/27/17 15:30 VBG HCO3 22.3 mmol/L 03/27/17 15:30 VBG Total CO2 25.7 mmol/L (22-28) 03/27/17 15:30 VBG O2 Sat (Calc) 52.4 % (40-65) 03/27/17 15:30 VBG Base Excess -1.7 mmol/L (0.0-2.0) L 03/27/17 15:30 VBG Potassium 3.8 mmol/L (3.6-5.2) 03/27/17 15:30 A-a O2 Difference 65.0 mm/Hg 03/27/17 15:30 Sodium 139.0 mmol/L (132-148) 03/27/17 15:30 Chloride 108.0 mmol/L (98-107) H 03/27/17 15:30 Glucose 145 mg/dL (65-105) H 03/27/17 15:30 Lactate 2.4 mmol/L (0.7-2.1) H 03/27/17 15:30 FiO2 21.0 % 03/27/17 15:30 Crit Value Called To Chavo salcido 03/27/17 15:30 Crit Value Called By Rt 03/27/17 15:30 Crit Value Read Back Y 03/27/17 15:30 Blood Gas Notified Time 1545 03/27/17 15:30 Sodium 139 mmol/l (132-148) 03/31/17 05:35 Potassium 4.1 MMOL/L (3.6-5.0) 03/31/17 05:35 Chloride 104 mmol/L (98-107) 03/31/17 05:35 Carbon Dioxide 23 mmol/L (22-30) 03/31/17 05:35 Anion Gap 16 (10-20) 03/31/17 05:35 BUN 14 mg/dl (7-17) 03/31/17 05:35 Creatinine 0.6 mg/dl (0.7-1.2) L 03/31/17 05:35 Est GFR ( Amer) > 60 03/31/17 05:35 Est GFR (Non-Af Amer) > 60 03/31/17 05:35 POC Glucose (mg/dL) 257 mg/dL (65-110) H 04/01/17 10:44 Random Glucose 174 mg/dL (65-105) H 03/31/17 05:35 Calcium 9.6 mg/dL (8.4-10.2) 03/31/17 05:35 Total Bilirubin 0.4 mg/dl (0.2-1.3) 03/27/17 13:11 AST 41 U/L (14-36) H 03/27/17 13:11 ALT 57 U/L (9-52) H 03/27/17 13:11 Alkaline Phosphatase 64 U/L (38-126) 03/27/17 13:11 Total Protein 7.3 G/DL (6.3-8.2) 03/27/17 13:11 Albumin 4.1 g/dL (3.5-5.0) 03/27/17 13:11 Globulin 3.2 gm/dL (2.2-3.9) 03/27/17 13:11 Albumin/Globulin Ratio 1.3 (1.0-2.1) 03/27/17 13:11 Beta HCG, Quant < 2.39 mIU/mL 03/31/17 08:21 Venous Blood Potassium 3.8 mmol/L (3.6-5.2) 03/27/17 15:30 Vancomycin Trough 9.4 ug/mL (5.0-10.0) 04/01/17 05:45 Discharge Exam - Head Exam Head Exam: ATRAUMATIC, NORMAL INSPECTION, NORMOCEPHALIC Discharge Plan - Discharge Medications Prescriptions: Fluticasone Propionate [Flonase] 1 spr KIMBERLEE BID #1 bottle Linezolid [Zyvox] 600 mg PO Q12 #14 tab - Follow Up Plan Condition: STABLE Disposition: HOME/ ROUTINE Instructions: Cellulitis (DC), Abscess (GEN) Additional Instructions: Complete all antibiotics. Follow up with Dr. Crabtree in 1 week Referrals: Riki Marie MD [Staff Provider] - Nate Bangura MD [Staff Provider] - Quinton Jeronimo MD [Family Provider] -
== END 2017-04-01 15:02 | disposition home or self-care (01) | DRG 601 ==
LOC: H.ER 11:37 → H.ERHOLD 14:25 → H.MEDSURG1 18:09
PROVIDERS: ADMIT Internal Medicine; ATTEND Internal Medicine
DX: N61.1 Abscess of the breast and nipple (principal); B95.7 Other staphylococcus as the cause of diseases classified elsewhere; E11.9 Type 2 diabetes mellitus without complications; E78.00 Pure hypercholesterolemia, unspecified; B95.2 Enterococcus as the cause of diseases classified elsewhere; E78.5 Hyperlipidemia, unspecified; K29.70 Gastritis, unspecified, without bleeding; K57.90 Diverticulosis of intestine, part unspecified, without perforation or abscess without bleeding

== ENCOUNTER 2017-06-04 18:47 | Emergency (ER) | payer BC ==
[2017-06-04 18:48] VITALS: BMI 33.3
[2017-06-04 18:54] VITALS: BP 151/79; PULSE 79; RESP 16; TEMP 97.6; O2SAT 99
--- NOTE | 2017-06-04 20:14 | ED PDOC ---
Upper Extremity Pain/Injury Time Seen by Provider: 06/04/17 19:20 Chief Complaint (Nursing): Upper Extremity Problem/Injury Chief Complaint (Provider): Left wrist injury History Per: Patient History/Exam Limitations: no limitations Onset/Duration Of Symptoms: Days (x1) Current Symptoms Are (Timing): Still Present Additional Complaint(s): Cathy Sigala is a 51 year old female, with no significant past medical history , who presents to the emergency department complaining of left wrist pain s/p injury last night at 3am. Patient reports she tried to reach for the remote from her bed when she accidentally fell and landed on her left wrist. She states last night it looked like the bone was protruding. Patient took Tylenol twice with mild improvement. She denies any other injuries or medical complaints. PMD: Quinton Jeronimo Past Medical History Reviewed: Historical Data, Nursing Documentation, Vital Signs Vital Signs: Last Vital Signs Temp 97.6 F 06/04/17 18:53 Pulse 79 06/04/17 18:53 Resp 16 06/04/17 18:53 BP 151/79 H 06/04/17 18:53 Pulse Ox 99 06/04/17 18:53 - Medical History PMH: Diabetes, Hypercholesterolemia Denies: Chronic Kidney Disease - Surgical History Surgical History: Appendectomy, Tonsillectomy, - Family History Family History: States: Unknown Family Hx - Social History Current smoker - smoking cessation education provided: No Alcohol: None Drugs: Denies - Home Medications Home Medications: Ambulatory Orders Medication Instructions Recorded Acetaminophen/Oxycodone Hydr 1 tab PO DAILY 01/16/17 [Percocet 10/325 mg Tab] SITagliptin [Januvia] 100 mg PO DAILY 01/16/17 Dulaglutide [Trulicity] 0.75 mg SC SUN 03/27/17 Glimepiride [Amaryl] 4 mg PO BID 03/27/17 Metformin HCl [Metformin HCl ER] 1,000 mg PO BID 03/27/17 Benzocaine/Menthol [Cepacol Sore 1 cortney PO Q4 PRN cortney 04/01/17 Throat] Fluticasone Propionate [Flonase] 1 spr KIMBERLEE BID #1 bottle 04/01/17 Linezolid [Zyvox] 600 mg PO Q12 #14 tab 04/01/17 guaiFENesin/Dextromethorphan 1 tab PO BID tab 04/01/17 [Mucinex-DM 600-30 mg] traMADol [Ultram] 50 mg PO Q6H PRN #8 tab 06/04/17 - Allergies Allergies/Adverse Reactions: Allergies Allergy/AdvReac Type Severity Reaction Status Date / Time No Known Allergies Allergy Verified 03/17/17 21:52 Review of Systems ROS Statement: Except As Marked, All Systems Reviewed And Found Negative Musculoskeletal: Positive for: Hand Pain (left wrist) Physical Exam - Reviewed Nursing Documentation Reviewed: Yes Vital Signs Reviewed: Yes - Physical Exam Appears: Positive for: Well, Non-toxic, No Acute Distress Head Exam: Positive for: ATRAUMATIC, NORMAL INSPECTION, NORMOCEPHALIC Skin: Positive for: Normal Color, Warm, Dry Eye Exam: Positive for: Normal appearance Neck: Positive for: Painless ROM Respiratory: Negative for: Respiratory Distress Extremity: Positive for: Tenderness (distal radius ). Negative for: Normal ROM (decreased secondary to pain), Deformity (on left wrist), Swelling (on left wrist) Neurologic/Psych: Positive for: Alert, Oriented - ECG O2 Sat by Pulse Oximetry: 99 (RA) Pulse Ox Interpretation: Normal Medical Decision Making Medical Decision Making: Initial Impression: left wrist injury Initial Plan: --Motrin tab 600 mg PO --Wrist, left 3 views [RAD] --Reevaluation Wrist x-ray without acute fracture or dislocation. Velcro wrist splint applied. ~ Scribe Attestation: Documented by Brandt Andrew, acting as a scribe for Sofie Mckenna PA-C. Provider Scribe Attestation: All medical record entries made by the Scribe were at my direction and personally dictated by me. I have reviewed the chart and agree that the record accurately reflects my personal performance of the history, physical exam, medical decision making, and the department course for this patient. I have also personally directed, reviewed, and agree with the discharge instructions and disposition. Disposition - Clinical Impression Clinical Impression: Wrist injury - Patient ED Disposition Is Patient to be Admitted: No Counseled Patient/Family Regarding: Diagnosis, Need For Followup, Rx Given - Disposition Disposition: Routine/Home Disposition Time: 20:41 Condition: GOOD Prescriptions: traMADol [Ultram] 50 mg PO Q6H PRN #8 tab PRN Reason: Pain Instructions: Common Wrist Injuries (DC) Forms: [employer] ([place])
--- NOTE | 2017-06-05 10:04 | RAD ---
PROCEDURE: Left Wrist Radiographs. HISTORY: pain s/p fall COMPARISON: Comparison made with prior left wrist radiographs 08/14/2012 FINDINGS: BONES: There is a tiny corticated bony density within the soft tissues just distal to the distal tip of the ulna styloid which may represent some old posttraumatic mineralization. No definitive evidence of acute displaced fracture nor dislocation. JOINTS: Normal. No dislocation. SOFT TISSUES: Mild vascular calcifications are present. OTHER FINDINGS: None. IMPRESSION: No evidence of acute displaced fracture nor dislocation. Tiny corticated density within the soft tissues adjacent to the distal tip of the ulnar styloid likely representing some old posttraumatic mineralization.
== END 2017-06-04 20:49 | disposition home or self-care (01) ==
LOC: H.ER 18:47
DX: E11.9 Type 2 diabetes mellitus without complications (principal); E78.00 Pure hypercholesterolemia, unspecified; W06.XXXA Fall from bed, initial encounter